=== PATIENT | male | born 1930 | race Caucasian/White ===

== ENCOUNTER → 2017-02-25 | Outpatient (CLI) | payer OTHER | LOC: FIMAGING 09:34 | PROVIDERS: ATTEND Internal Medicine Hematology & Oncology | DX: C61 Malignant neoplasm of prostate (principal); N13.30 Unspecified hydronephrosis; C79.51 Secondary malignant neoplasm of bone | CPT/HCPCS: 78306; A9503 ==

== ENCOUNTER 2017-09-12 09:16 | Emergency (ER) | payer OTHER ==
--- NOTE | 2017-09-12 09:36 | EDPHY ---
H & P Time Seen by Provider: 09/12/17 09:36 HPI/ROS: CHIEF COMPLAINT: Abdominal pain HISTORY OF PRESENT ILLNESS: History of prostate cancer with worsening abdominal fullness and discomfort over the last 2 days. Does not radiate, not better or worse with oral intake. Symptoms mild to moderate. Just describes discomfort without sharp pain. REVIEW OF SYSTEMS: Eye: no change in vision ENT: no sore throat Cardiac: no chest pain or syncope Pulmonary: no cough or SOB Abdomen: No vomiting or diarrhea Musculoskeletal: no back pain Skin: no rash Neuro: no headache Constitutional: no fever : No change in urination A comprehensive 10 point review of systems is otherwise negative aside from elements mentioned in the history of present illness. PAST MEDICAL HISTORY: History of prostate cancer with metastases, appendectomy and tonsillectomy. Social history: , here with his General Appearance: Alert and conversant, cooperative. Eyes: No scleral icterus. ENT, Mouth: Normal mucous membranes. Respiratory: Normal respiratory effort, breath sounds equal, lungs are clear to auscultation. Cardiovascular: Regular rate and rhythm. Gastrointestinal: Abdomen is soft and non tender. Suprapubic fullness. Neurological: Alert, face symmetric, normal motor and sensory in extremities. Ambulatory. Skin: Warm and dry, no rashes. Musculoskeletal: No peripheral edema. Psychiatric: Not agitated. Emergency Department course/MDM: Bladder scan shows large retained urine just after return from the bathroom. Symptoms likely from bladder outlet obstruction and bladder distension. Plan for CBC chemistry UA and Rivera catheter for acute urinary retention. 1033: Re-examined and feels better, leg bag and urology followup. Smoking Status: Never smoked Constitutional: Initial Vital Signs Temperature (C) 36.7 C 09/12/17 09:28 Heart Rate 71 09/12/17 09:28 Respiratory Rate 18 09/12/17 09:28 Blood Pressure 171/96 H 09/12/17 09:28 O2 Sat (%) 91 L 09/12/17 09:28 O2 Delivery Mode Room Air Allergies/Adverse Reactions: No Known Allergies Allergy (Unverified 09/12/17 09:27) Home Medications: Medication Instructions Recorded Miscellaneous Medical Supply [NO 1 ea MISC AD 08/17/11 HOME MEDS] Zytiga 09/12/17 predniSONE 09/12/17 Medical Decision Making Differential Diagnosis: Differential considered including but not limited to UTI, prostate cancer, prostatic hypertrophy, bladder dysfunction, cauda equina or spinal cord problem. - Data Points Laboratory Results: Laboratory Results 09/12/17 09:50 09/12/17 09:50 09/12/17 09/12/17 09/12/17 09:50 09:50 09:40 WBC 11.49 10^3/uL H 10^3/uL (3.80-9.50) RBC 4.60 10^6/uL 10^6/uL (4.40-6.38) Hgb 13.9 g/dL g/dL (13.7-17.5) Hct 41.1 % % (40.0-51.0) MCV 89.3 fL fL (81.5-99.8) MCH 30.2 pg pg (27.9-34.1) MCHC 33.8 g/dL g/dL (32.4-36.7) RDW 14.3 % % (11.5-15.2) Plt Count 202 10^3/uL 10^3/uL (150-400) MPV 9.6 fL fL (8.7-11.7) Neut % (Auto) 72.7 % % (39.3-74.2) Lymph % (Auto) 14.8 % L % (15.0-45.0) [place] % (Auto) 10.5 % % (4.5-13.0) Eos % (Auto) 0.7 % % (0.6-7.6) Baso % (Auto) 0.5 % % (0.3-1.7) Nucleat RBC Rel Count 0.0 % % (0.0-0.2) Absolute Neuts (auto) 8.35 10^3/uL H 10^3/uL (1.70-6.50) Absolute Lymphs (auto) 1.70 10^3/uL 10^3/uL (1.00-3.00) Absolute Monos (auto) 1.21 10^3/uL H 10^3/uL (0.30-0.80) Absolute Eos (auto) 0.08 10^3/uL 10^3/uL (0.03-0.40) Absolute Basos (auto) 0.06 10^3/uL 10^3/uL (0.02-0.10) Absolute Nucleated RBC 0.00 10^3/uL 10^3/uL (0-0.01) Immature Gran % 0.8 % % (0.0-1.1) Immature Gran # 0.09 10^3/uL 10^3/uL (0.00-0.10) Sodium 147 mEq/L H mEq/L (135-145) Potassium 3.1 mEq/L L mEq/L (3.3-5.0) Chloride 107 mEq/L mEq/L (97-110) Carbon Dioxide 26 mEq/l mEq/l (22-31) Anion Gap 14 mEq/L mEq/L (8-16) BUN 24 mg/dL H mg/dL (7-23) Creatinine 1.3 mg/dL mg/dL (0.7-1.3) Estimated GFR 52 Glucose 114 mg/dL H mg/dL (70-100) Calcium 9.0 mg/dL mg/dL (8.5-10.4) Urine Color YELLOW Urine Appearance HAZY Urine pH 6.0 (5.0-7.5) Ur Specific [place] 1.014 (1.002-1.030) Urine Protein NEGATIVE (NEGATIVE) Urine Ketones NEGATIVE (NEGATIVE) Urine Blood 3+ H (NEGATIVE) Urine Nitrate NEGATIVE (NEGATIVE) Urine Bilirubin NEGATIVE (NEGATIVE) Urine Urobilinogen NEGATIVE EU EU (0.2-1.0) Ur Leukocyte Esterase NEGATIVE (NEGATIVE) Urine RBC 50-182 /hpf H /hpf (0-3) Urine WBC 1-3 /hpf /hpf (0-3) Ur Epithelial Cells TRACE /lpf /lpf (NONE-1+) Urine Mucus TRACE /lpf /lpf (NONE-1+) Urine Glucose NEGATIVE (NEGATIVE) Departure - Departure Disposition: Home, Routine, Self-Care Clinical Impression: Urinary retention Condition: Good Instructions: Urinary Retention in Men (ED), Rivera Catheter Placement and Care (ED) Additional Instructions: See your urologist in the office this week. Referrals: DEENA ALLEN [Primary Care Provider] - As per Instructions Filippo Arellano MD [Medical Doctor] - As per Instructions
[2017-09-12 09:58] LABS: PLATELET COUNT 202 10^3/uL (150-400)
[2017-09-12 10:49] VITALS: BP 171/89
== END 2017-09-12 10:45 | disposition home or self-care (01) ==
PROC: 0T9B70Z Drainage of Bladder with Drainage Device, Via Natural or Artificial Opening (ICD-10-PCS; principal; 2017-09-12)
DX: R33.9 Retention of urine, unspecified (principal); Z85.46 Personal history of malignant neoplasm of prostate; Z90.89 Acquired absence of other organs

== ENCOUNTER 2017-09-27 06:06 | Emergency (ER) | payer BC, OTHER ==
--- NOTE | 2017-09-27 06:29 | EDPHY ---
H & P Stated Complaint: ABD PAIN Time Seen by Provider: 09/27/17 06:29 HPI/ROS: HPI CHIEF COMPLAINT: Cut end of Rivera cath off. HISTORY OF PRESENT ILLNESS: 87-year-old male, presents emergency room by private vehicle with his family after he became upset about his Rivera catheter bothering him and having some discomfort. He decided to take pliers and cut the Rivera catheter. He cut the Rivera catheter with the pliers and cut at the end of the Rivera catheter where the tubing hooks up to as well as the flush port. He came into the emergency room with a Rivera catheter still hanging out of his penis. Upon arrival I was able to remove the Rivera catheter that was left remaining in his penile urethra and bladder. The balloon was deflated. There were no complications. The patient had a Rivera catheter placed for urinary outflow obstruction. He is due to follow up with Urology. Will need to place a new Rivera catheter check basic blood work and a urine as he was having some discomfort with this Rivera. Patient was initially seen on September 12 for outflow obstruction had a Rivera catheter placed at that time. Past Medical History: Prostate cancer, appendectomy, tonsillectomy Social History: Denies daily use of drugs alcohol tobacco. at bedside. Son at bedside. Family History: Noncontributory. ROS REVIEW OF SYSTEMS: A comprehensive 10 point review of systems is otherwise negative aside from elements mentioned in the history of present illness. Exam Constitutional triage nursing summary reviewed, vital signs reviewed, awake/ alert. Eyes normal conjunctivae and sclera, EOMI, PERRLA. HENT normal inspection, atraumatic, moist mucus membranes, no epistaxis, neck supple/ no meningismus, no raccoon eyes. Respiratory clear to auscultation bilaterally, normal breath sounds, no respiratory distress, no wheezing. Cardiovascular rate normal, regular rhythm, no murmur, no edema, distal pulses normal. Gastrointestinal soft, non-tender, no rebound, no guarding, normal bowel sounds, no distension, no pulsatile mass. Genitourinary exam: Circumcised male Rivera catheter remaining in place after was cut by the patient Musculoskeletal no midline vertebral tenderness, full range of motion, no calf swelling, no tenderness of extremities, no meningismus, good pulses, neurovascularly intact. Skin pink, warm, & dry, no rash, skin atraumatic. Neurologic awake, alert and oriented x 3, AAOx3, moves all 4 extremities equally, motor intact, sensory intact, CN II-XII intact, normal cerebellar, normal vision, normal speech. Psychiatric normal mood/affect. Heme/Lymph/Immune no lymphadenopathy. Differential Diagnosis: Includes but is not limited to in a particular order Rivera catheter complications, UTI, cystitis, urethritis, cutting of the Rivera catheter, urinary outflow obstruction Medical Decision Making: Plan for this patient was able to easily remove the remaining Rivera catheter as a came right out the balloon was deflated. Once this was removed a new Rivera catheter will be placed. Will check basic blood work. Check urinalysis. The patient will need to follow up with Urology once again. He will go home with a new indwelling Rivera catheter. Re-evaluation: Blood work and urinalysis reviewed. Urinalysis shows UTI urine culture sent. This urine was obtained through a new Rivera catheter. Will place on Keflex and peridium for home. Understands return emergency room if there is worsening abdominal pain fever vomiting back pain not doing well. I discussed this at length with at bedside as well son at bedside. IV Rocephin given here in emergency room. Urine sent for culture. Source: Patient - Personal History Current Tetanus/Diphtheria Vaccine: Unsure Current Tetanus Diphtheria and Acellular Pertussis (TDAP): Unsure Tetanus Vaccine Date: Unsure of date - Medical/Surgical History Hx Asthma: No Hx Chronic Respiratory Disease: No Hx Diabetes: No Hx Cardiac Disease: No Hx Renal Disease: Yes Hx Cirrhosis: No Hx Alcoholism: No Hx HIV/AIDS: No Hx Splenectomy or Spleen Trauma: No Other PMH: Kidney CA, PROSTATE CA - Social History Smoking Status: Never smoked Constitutional: Initial Vital Signs Temperature (C) 36.3 C 09/27/17 06:09 Heart Rate 101 H 09/27/17 06:09 Respiratory Rate 18 09/27/17 06:09 Blood Pressure 146/102 H 09/27/17 06:09 O2 Sat (%) 95 09/27/17 06:09 O2 Delivery Mode Room Air Allergies/Adverse Reactions: No Known Allergies Allergy (Unverified 09/12/17 09:27) Home Medications: Medication Instructions Recorded Miscellaneous Medical Supply [NO 1 ea MISC AD 08/17/11 HOME MEDS] Zytiga 09/12/17 predniSONE 09/12/17 Cephalexin [Keflex] 500 mg PO Q6H #28 cap 09/27/17 Phenazopyridine HCl [Pyridium] 200 mg PO TID #15 tab 09/27/17 Medical Decision Making - Data Points Laboratory Results: Laboratory Results 09/27/17 06:48 09/27/17 06:48 09/27/17 09/27/17 09/27/17 07:15 06:48 06:48 WBC 14.37 10^3/uL H 10^3/uL (3.80-9.50) RBC 4.97 10^6/uL 10^6/uL (4.40-6.38) Hgb 15.2 g/dL g/dL (13.7-17.5) Hct 44.5 % % (40.0-51.0) MCV 89.5 fL fL (81.5-99.8) MCH 30.6 pg pg (27.9-34.1) MCHC 34.2 g/dL g/dL (32.4-36.7) RDW 13.8 % % (11.5-15.2) Plt Count 278 10^3/uL 10^3/uL (150-400) MPV 9.6 fL fL (8.7-11.7) Neut % (Auto) 79.2 % H % (39.3-74.2) Lymph % (Auto) 9.0 % L % (15.0-45.0) [place] % (Auto) 10.0 % % (4.5-13.0) Eos % (Auto) 0.1 % L % (0.6-7.6) Baso % (Auto) 0.4 % % (0.3-1.7) Nucleat RBC Rel Count 0.0 % % (0.0-0.2) Absolute Neuts (auto) 11.38 10^3/uL H 10^3/uL (1.70-6.50) Absolute Lymphs (auto) 1.30 10^3/uL 10^3/uL (1.00-3.00) Absolute Monos (auto) 1.43 10^3/uL H 10^3/uL (0.30-0.80) Absolute Eos (auto) 0.02 10^3/uL L 10^3/uL (0.03-0.40) Absolute Basos (auto) 0.06 10^3/uL 10^3/uL (0.02-0.10) Absolute Nucleated RBC 0.00 10^3/uL 10^3/uL (0-0.01) Immature Gran % 1.3 % H % (0.0-1.1) Immature Gran # 0.18 10^3/uL H 10^3/uL (0.00-0.10) Sodium 140 mEq/L mEq/L (135-145) Potassium 4.2 mEq/L mEq/L (3.3-5.0) Chloride 107 mEq/L mEq/L (97-110) Carbon Dioxide 23 mEq/l mEq/l (22-31) Anion Gap 10 mEq/L mEq/L (8-16) BUN 36 mg/dL H mg/dL (7-23) Creatinine 0.8 mg/dL mg/dL (0.7-1.3) Estimated GFR > 60 Glucose 134 mg/dL H mg/dL (70-100) Calcium 9.1 mg/dL mg/dL (8.5-10.4) Urine Color RED Urine Appearance TURBID Urine pH 8.0 H (5.0-7.5) Ur Specific [place] 1.017 (1.002-1.030) Urine Protein 3+ H (NEGATIVE) Urine Ketones NEGATIVE (NEGATIVE) Urine Blood 3+ H (NEGATIVE) Urine Nitrate NEGATIVE (NEGATIVE) Urine Bilirubin NEGATIVE (NEGATIVE) Urine Urobilinogen NEGATIVE EU EU (0.2-1.0) Ur Leukocyte Esterase 3+ H (NEGATIVE) Urine RBC Pending Urine WBC Pending Ur Epithelial Cells Pending Urine Glucose 1+ H (NEGATIVE) Departure - Departure Disposition: Home, Routine, Self-Care Clinical Impression: Rivera catheter problem Qualifiers: Encounter type: initial encounter Qualified Code(s): T83.9XXA - Unspecified complication of genitourinary prosthetic device, implant and graft, initial encounter UTI (urinary tract infection) Qualifiers: Urinary tract infection type: acute cystitis Hematuria presence: with hematuria Qualified Code(s): N30.01 - Acute cystitis with hematuria Condition: Good Instructions: Rivera Catheter Placement and Care (ED), Urinary Tract Infection in Men (ED) Additional Instructions: 1. Return emergency room if you have any questions or concerns about her Rivera catheter 2. Please follow up with your urologist. Referrals: DEENA ALLEN [Primary Care Provider] - As per Instructions Jessy Palma MD [Medical Doctor] - As per Instructions Prescriptions: Cephalexin [Keflex] 500 mg PO Q6H #28 cap Phenazopyridine HCl [Pyridium] 200 mg PO TID #15 tab
[2017-09-27 07:00] LABS: PLATELET COUNT 278 10^3/uL (150-400)
[2017-09-27] MEDS ORDERED: PHENAZOPYRIDINE HCL 200 MG TAB PO ONE (07:36)
[2017-09-27 08:37] VITALS: BP 148/90
== END 2017-09-27 08:36 | disposition home or self-care (01) ==
PROC: 0T9B70Z Drainage of Bladder with Drainage Device, Via Natural or Artificial Opening (ICD-10-PCS; principal; 2017-09-27)
DX: T83.091A Other mechanical complication of indwelling urethral catheter, initial encounter (principal); N30.01 Acute cystitis with hematuria; B95.2 Enterococcus as the cause of diseases classified elsewhere; Z85.46 Personal history of malignant neoplasm of prostate; Z85.528 Personal history of other malignant neoplasm of kidney; Y73.2 Prosthetic and other implants, materials and accessory gastroenterology and urology devices associated with adverse incidents
CPT/HCPCS: 51702; 74018; 96374; 99284; J0696

== ENCOUNTER → 2017-10-01 | Outpatient (CLI) | payer BC, OTHER | LOC: FIMAGING 08:42 | PROVIDERS: ATTEND Physician Assistant | DX: C61 Malignant neoplasm of prostate (principal); C79.51 Secondary malignant neoplasm of bone; R97.21 Rising PSA following treatment for malignant neoplasm of prostate | CPT/HCPCS: 78306; A9503 ==

== ENCOUNTER 2017-10-02 17:15 | Inpatient (IN) | payer BC, OTHER ==
[2017-10-02] MEDS ORDERED: NS 1,000 ML IV ONE (17:39)
[2017-10-02] MEDS ORDERED: ONDANSETRON 4 MG/2 ML VIAL IVP ONE (17:40)
--- NOTE | 2017-10-02 17:40 | EDPHY ---
H & P Time Seen by Provider: 10/02/17 17:28 HPI/ROS: CHIEF COMPLAINT: Concern for dehydration HISTORY OF PRESENT ILLNESS: Patient brought in by family because of concern for dehydration because he is not eating or drinking. He has a Rivera catheter, was seen here twice recently for that. He over the past 36 hr says that he "gags" every time he tries to eat or drink anything. He has an upset stomach and has not only been able to eat a peach today but no oral fluids. Symptoms moderate, worse with attempting to eat or drink. No abdominal pain and no fevers or chills. REVIEW OF SYSTEMS: Eye: no change in vision ENT: no sore throat Cardiac: no chest pain or syncope Pulmonary: no cough or SOB Abdomen: HPI Musculoskeletal: no back pain Skin: no rash Neuro: no headache Constitutional: no fever : Rivera catheterization A comprehensive 10 point review of systems is otherwise negative aside from elements mentioned in the history of present illness. PAST MEDICAL HISTORY: Kidney and prostate cancer, Rivera catheter Social history: Here with son and General Appearance: Alert and conversant, cooperative. Eyes: No scleral icterus. ENT, Mouth: Dry mucous membranes Respiratory: Normal respiratory effort, breath sounds equal, lungs are clear to auscultation. Cardiovascular: Regular rate and rhythm. Gastrointestinal: Abdomen is soft and non tender. Neurological: Alert, face symmetric, normal motor and sensory in extremities. Skin: Warm and dry, no rashes. Musculoskeletal: No peripheral edema. Psychiatric: Not agitated. Emergency Department course/MDM: IV normal saline 1 L, Zofran 4 mg IV, EKG and screening labs. 1825: enterobacter resistant to cefazolin, on nitrofurantoin since; recommend admission IV antibiotics. 1 g IV ceftriaxone, is sensitive per micro result. Smoking Status: Never smoked Constitutional: Initial Vital Signs Temperature (C) 36.5 C 10/02/17 17:33 Heart Rate 80 10/02/17 17:33 Respiratory Rate 18 10/02/17 17:33 Blood Pressure 149/98 H 10/02/17 17:33 O2 Sat (%) 93 10/02/17 17:33 O2 Delivery Mode Room Air Allergies/Adverse Reactions: No Known Allergies Allergy (Verified 10/02/17 20:04) Home Medications: Medication Instructions Recorded Abiraterone Acetate [Zytiga] 1,000 mg PO HS 10/02/17 Nitrofurantoin Macrobid [Macrobid] 100 mg PO BID 10/02/17 Phenazopyridine HCl [Pyridium] 200 mg PO TID 10/02/17 Potassium Chloride 20 meq PO DAILY 10/02/17 predniSONE [predniSONE] 5 mg PO BIDMEAL 10/02/17 Medical Decision Making - Diagnostics EKG Interpretation: 12-lead EKG interpreted by me; official reading is in trace master. My interpretation is sinus rhythm, inferior Q-waves noted, rate 95. Differential Diagnosis: Differential considered including but not limited to UTI, ACS, metabolic abnormality, dehydration. Consult/Admit Bed Type: [place] [id number] - Data Points Laboratory Results: Laboratory Results 10/02/17 17:45 10/02/17 17:45 10/02/17 10/02/17 10/02/17 17:45 17:45 17:45 WBC 16.39 10^3/uL H 10^3/uL (3.80-9.50) RBC 4.80 10^6/uL 10^6/uL (4.40-6.38) Hgb 14.4 g/dL g/dL (13.7-17.5) Hct 42.7 % % (40.0-51.0) MCV 89.0 fL fL (81.5-99.8) MCH 30.0 pg pg (27.9-34.1) MCHC 33.7 g/dL g/dL (32.4-36.7) RDW 13.6 % % (11.5-15.2) Plt Count 279 10^3/uL 10^3/uL (150-400) MPV 9.3 fL fL (8.7-11.7) Neut % (Auto) 81.6 % H % (39.3-74.2) Lymph % (Auto) 8.7 % L % (15.0-45.0) [place] % (Auto) 7.1 % % (4.5-13.0) Eos % (Auto) 0.8 % % (0.6-7.6) Baso % (Auto) 0.5 % % (0.3-1.7) Nucleat RBC Rel Count 0.0 % % (0.0-0.2) Absolute Neuts (auto) 13.37 10^3/uL H 10^3/uL (1.70-6.50) Absolute Lymphs (auto) 1.42 10^3/uL 10^3/uL (1.00-3.00) Absolute Monos (auto) 1.17 10^3/uL H 10^3/uL (0.30-0.80) Absolute Eos (auto) 0.13 10^3/uL 10^3/uL (0.03-0.40) Absolute Basos (auto) 0.09 10^3/uL 10^3/uL (0.02-0.10) Absolute Nucleated RBC 0.00 10^3/uL 10^3/uL (0-0.01) Immature Gran % 1.3 % H % (0.0-1.1) Immature Gran # 0.21 10^3/uL H 10^3/uL (0.00-0.10) Sodium 135 mEq/L mEq/L (135-145) Potassium 3.9 mEq/L mEq/L (3.3-5.0) Chloride 107 mEq/L mEq/L (97-110) Carbon Dioxide 24 mEq/l mEq/l (22-31) Anion Gap 4 mEq/L L mEq/L (8-16) BUN 19 mg/dL mg/dL (7-23) Creatinine 0.6 mg/dL L mg/dL (0.7-1.3) Estimated GFR > 60 Glucose 110 mg/dL H mg/dL (70-100) Calcium 8.7 mg/dL mg/dL (8.5-10.4) Urine Color RED Urine Appearance TURBID Urine pH 6.0 (5.0-7.5) Ur Specific [place] 1.016 (1.002-1.030) Urine Protein 2+ H (NEGATIVE) Urine Ketones 1+ H (NEGATIVE) Urine Blood 3+ H (NEGATIVE) Urine Nitrate POSITIVE H (NEGATIVE) Urine Bilirubin NEGATIVE (NEGATIVE) Urine Urobilinogen 2.0 EU H EU (0.2-1.0) Ur Leukocyte Esterase NEGATIVE (NEGATIVE) Urine RBC 50-182 /hpf H /hpf (0-3) Urine WBC 50-182 /hpf H /hpf (0-3) Ur Epithelial Cells NONE SEEN /lpf /lpf (NONE-1+) Urine Bacteria 4+ /hpf H /hpf (NONE SEEN) Urine Mucus 3+ /lpf H /lpf (NONE-1+) Urine Glucose NEGATIVE (NEGATIVE) Medications Given: Discontinued Medications Sodium Chloride (Ns) 1,000 mls @ 0 mls/hr IV EDNOW ONE; Wide Open PRN Reason: Protocol Stop: 10/02/17 17:40 Last Admin: 10/02/17 17:48 Dose: 1,000 mls Ceftriaxone Sodium/Dextrose (Rocephin 1 Gm (Premix)) 50 mls @ 100 mls/hr IV EDNOW ONE PRN Reason: Protocol Stop: 10/02/17 19:01 Last Admin: 10/02/17 18:43 Dose: 50 mls Ondansetron HCl (Zofran) 4 mg IVP EDNOW ONE Stop: 10/02/17 17:41 Last Admin: 10/02/17 17:49 Dose: 4 mg Departure - Departure Disposition: [place] Inpatient Acute Clinical Impression: Urinary tract infection Qualifiers: Urinary tract infection type: catheter-associated UTI Indwelling urinary catheter type: indwelling urethral catheter Encounter type: initial encounter Qualified Code(s): T83.511A - Infection and inflammatory reaction due to indwelling urethral catheter, initial encounter Condition: Good
[2017-10-02 18:02] LABS: PLATELET COUNT 279 10^3/uL (150-400)
--- NOTE | 2017-10-02 18:07 | CPEKG ---
Heart Rate: 95 RR Interval: 632 P-R Interval: 126 QRSD Interval: 94 QT Interval: 416 QTC Interval: 523 P [place]: 0 QRS [place]: -83 T Wave [place]: 21 EKG Severity - ABNORMAL ECG - EKG Impression: SINUS RHYTHM EKG Impression: INFERIOR INFARCT, AGE INDETERMINATE EKG Impression: PROLONGED QT INTERVAL Electronically Signed By: Alex Kapadia 02-Oct-2017 18:52:46
[2017-10-02] MEDS ORDERED: ONDANSETRON DISINTEGRATING 4 MG TAB PO PRN (19:38)
[2017-10-02] MEDS ORDERED: oxyCODONE IR 5 MG TAB PO PRN (19:38)
[2017-10-02] MEDS ORDERED: ONDANSETRON 4 MG/2 ML VIAL IVP PRN (19:38)
[2017-10-02] MEDS ORDERED: PROMETHAZINE HCL 25 MG/ML INJ IVP PRN (19:38)
[2017-10-02] MEDS ORDERED: ACETAMINOPHEN 325 MG TAB PO PRN (19:38)
--- NOTE | 2017-10-02 20:19 | PDGENHP ---
History and Physical - Chief Complaint can't eat or drink - History of Present Illness 87 yo M with PMH of metastatic prostate cancer, currently taking zytiga, with history of urinary retention and onrelas in place since August presenting with inability to tolerate much by mouth without gagging or feeling nauseated. He notes all day today he ate a peach. He is accompanied by his and son who are concerned that he was unable to take his zytiga due to not eating all day and needing to take the medication with food. Patient denies any fever or chills , he denies any pain. He notes that he is now able to drink water without gagging or feeling nauseated and he does want to try eating. He presented to the ER a week ago with complaints of discomfort with his ornelas, and had actually cut off the distal end of the catheter. At that time, he was sent home with keflex for a UTI. He took that for one week and more recently was started on macrobid. He currently denies any urinary complaints. History Information - Allergies/Home Medication List Allergies/Adverse Reactions: No Known Allergies Allergy (Verified 10/02/17 20:04) Home Medications: Abiraterone Acetate [Zytiga] 1,000 mg PO HS 10/02/17 [Last Taken 10/01/17] Nitrofurantoin Macrobid [Macrobid] 100 mg PO BID 10/02/17 [Last Taken 10/02/17] Phenazopyridine HCl [Pyridium] 200 mg PO TID 10/02/17 [Last Taken Unknown] Potassium Chloride 20 meq PO DAILY 10/02/17 [Last Taken 10/01/17] predniSONE [predniSONE] 5 mg PO BIDMEAL 10/02/17 [Last Taken 10/01/17] I have personally reviewed and updated: family history, medical history, social history, surgical history - Past Medical History cancer (metastatic prostate cancer, diffuse osseous mets) - Surgical History Reports: appendectomy - Family History Positive for: non-pertinent - Social History Smoking Status: Never smoked Alcohol Use: Rarely Drug Use: None Additional social history: Review of Systems Review of Systems: ROS: 10pt was reviewed & negative except for what was stated in HPI & below Physical Exam Physical Exam: Temp Pulse Resp BP Pulse Ox 36.5 C 91 18 134/96 H 92 10/02/17 17:33 10/02/17 19:49 10/02/17 19:49 10/02/17 19:49 10/02/17 19:49 Constitutional: not in pain, chronically ill appearing, cachectic Eyes: PERRL Ears, Nose, Mouth, Throat: moist mucous membranes, hearing normal Cardiovascular: regular rate and rhythym, no murmur, rub, or gallop, No edema Respiratory: no respiratory distress, no rales or rhonchi Gastrointestinal: normoactive bowel sounds, soft, non-tender abdomen Genitourinary: ornelas in urethra Skin: warm, normal color Musculoskeletal: no muscle tenderness Neurologic: AAOx3 Psychiatric: interacting appropriately, not anxious, poor memory Lab Data & Imaging Review 10/02/17 17:45 10/02/17 17:45 WBC 16.39 10^3/uL (3.80-9.50) H 10/02/17 17:45 RBC 4.80 10^6/uL (4.40-6.38) 10/02/17 17:45 Hgb 14.4 g/dL (13.7-17.5) 10/02/17 17:45 Hct 42.7 % (40.0-51.0) 10/02/17 17:45 MCV 89.0 fL (81.5-99.8) 10/02/17 17:45 MCH 30.0 pg (27.9-34.1) 10/02/17 17:45 MCHC 33.7 g/dL (32.4-36.7) 10/02/17 17:45 RDW 13.6 % (11.5-15.2) 10/02/17 17:45 Plt Count 279 10^3/uL (150-400) 10/02/17 17:45 MPV 9.3 fL (8.7-11.7) 10/02/17 17:45 Neut % (Auto) 81.6 % (39.3-74.2) H 10/02/17 17:45 Lymph % (Auto) 8.7 % (15.0-45.0) L 10/02/17 17:45 [place] % (Auto) 7.1 % (4.5-13.0) 10/02/17 17:45 Eos % (Auto) 0.8 % (0.6-7.6) 10/02/17 17:45 Baso % (Auto) 0.5 % (0.3-1.7) 10/02/17 17:45 Nucleat RBC Rel Count 0.0 % (0.0-0.2) 10/02/17 17:45 Absolute Neuts (auto) 13.37 10^3/uL (1.70-6.50) H 10/02/17 17:45 Absolute Lymphs (auto) 1.42 10^3/uL (1.00-3.00) 10/02/17 17:45 Absolute Monos (auto) 1.17 10^3/uL (0.30-0.80) H 10/02/17 17:45 Absolute Eos (auto) 0.13 10^3/uL (0.03-0.40) 10/02/17 17:45 Absolute Basos (auto) 0.09 10^3/uL (0.02-0.10) 10/02/17 17:45 Absolute Nucleated RBC 0.00 10^3/uL (0-0.01) 10/02/17 17:45 Immature Gran % 1.3 % (0.0-1.1) H 10/02/17 17:45 Immature Gran # 0.21 10^3/uL (0.00-0.10) H 10/02/17 17:45 Sodium 135 mEq/L (135-145) 10/02/17 17:45 Potassium 3.9 mEq/L (3.3-5.0) 10/02/17 17:45 Chloride 107 mEq/L (97-110) 10/02/17 17:45 Carbon Dioxide 24 mEq/l (22-31) 10/02/17 17:45 Anion Gap 4 mEq/L (8-16) L 10/02/17 17:45 BUN 19 mg/dL (7-23) 10/02/17 17:45 Creatinine 0.6 mg/dL (0.7-1.3) L 10/02/17 17:45 Estimated GFR > 60 10/02/17 17:45 Glucose 110 mg/dL (70-100) H 10/02/17 17:45 Calcium 8.7 mg/dL (8.5-10.4) 10/02/17 17:45 Urine Color RED 10/02/17 17:45 Urine Appearance TURBID 10/02/17 17:45 Urine pH 6.0 (5.0-7.5) 10/02/17 17:45 Ur Specific [place] 1.016 (1.002-1.030) 10/02/17 17:45 Urine Protein 2+ (NEGATIVE) H 10/02/17 17:45 Urine Ketones 1+ (NEGATIVE) H 10/02/17 17:45 Urine Blood 3+ (NEGATIVE) H 10/02/17 17:45 Urine Nitrate POSITIVE (NEGATIVE) H 10/02/17 17:45 Urine Bilirubin NEGATIVE (NEGATIVE) 10/02/17 17:45 Urine Urobilinogen 2.0 EU (0.2-1.0) H 10/02/17 17:45 Ur Leukocyte Esterase NEGATIVE (NEGATIVE) 10/02/17 17:45 Urine RBC 50-182 /hpf (0-3) H 10/02/17 17:45 Urine WBC 50-182 /hpf (0-3) H 10/02/17 17:45 Ur Epithelial Cells NONE SEEN /lpf (NONE-1+) 10/02/17 17:45 Urine Bacteria 4+ /hpf (NONE SEEN) H 10/02/17 17:45 Urine Mucus 3+ /lpf (NONE-1+) H 10/02/17 17:45 Urine Glucose NEGATIVE (NEGATIVE) 10/02/17 17:45 Visualized and Interpreted EKG results: Yes EKG Interpretation: Positive for: normal sinsus rhythm Assessment & Plan Assessment: Urinary tract infection (Acute) 87 yo M with hx of metastatic prostate cancer and bladder outlet obstruction with urinary retention and indwelling ornelas presenting with poor po intake, dehydration in setting of likely uti # uti: in the setting of indwelling ornelas x 1 month, had been on abx as an OP including keflex and more recently macrobid. Urine cultures from / polymicrobial with enterobacter, enterococcus and 3 other colony types--with enterobacter being resistant to cefazolin. Started on ctx, will attempt to have cultures added to urine drawn in ER prior to abx administration. Catheter will be changed out. Given chronic ornelas will ask ID to weigh in on abx mgmt in am. # urinary retention, chronic: with GROSS due to prostatomegaly and bladder enlargement, ornelas in place since August. Reviewed [facility] note from urology who feels that patient will likely be catheter dependent for life at this point. # metastatic prostate cancer: with patient initially declining traditional care and opting for diet and herbal treatments, now with progressive, widely metastatic disease and recent bone scan showing continued increasing bony involvement. Currently on zytiga and Lupron, followed by Dr. Montano and Dr. Joshi. If hospitalization is prolonged past tomorrow, would recommend IP oncology consultation. PSA most recently climbing again, now 86, but has been as high as 684. # dehydration: with poor po intake for one day in setting of uti and presumably due to same, continue IVF overnight, creatinine not increased # anorexia: presumably due to acute infection but with hx of widely metastatic prostate cancer there is the possibility that this is due to progression of cancer rather than acute process, as above # observation status, plan to dc patient on 10/03 so long as plan for abx is clear and patient eating/drinking well patient new to my care. Old records reviewed and summarized as above. Care plan reviewed with ER doctor including plan for abx management.
[2017-10-02] MEDS: PHENAZOPYRIDINE HCL 200 MG TAB PO SCH (20:48)
[2017-10-02] MEDS: ABIRATERONE ACETATE 250 MG PO SCH (22:34)
[2017-10-03] MEDS: NS 1,000 ML IV SCH ×3 (00:02→21:20)
[2017-10-03 05:26] LABS: PLATELET COUNT 228 10^3/uL (150-400)
[2017-10-03] MEDS: ABIRATERONE ACETATE 250 MG PO SCH (06:15)
[2017-10-03] MEDS ORDERED: ENOXAPARIN 30 MG/0.3 ML SYR SC SCH (09:00)
[2017-10-03] MEDS: PHENAZOPYRIDINE HCL 200 MG TAB PO SCH ×3 (09:02→21:10)
[2017-10-03] MEDS: predniSONE 5 MG TAB PO SCH ×2 (09:02→17:16)
[2017-10-03] MEDS ORDERED: Abiraterone Acetate [Zytiga] 250 MG PO SCH (12:00)
--- NOTE | 2017-10-03 12:10 | HOSPPROG ---
Hospitalist Progress Note Assessment/Plan: Assessment: 87-year-old male presents with catheter associated urinary tract infection and associated anorexia and generalized weak Plan: 1. Catheter associated urinary tract infection. Present on admission, secondary to indwelling Ornelas catheter which is required for his history of metastatic prostate cancer, recently failed treatment with Keflex and Macrobid -review of outside cultures demonstrates Enterococcus and Enterobacter from , resistant Ancef -day 2 of IV ceftriaxone, continue for total 7-10 day course -leukocytosis improving, remains elevated, continue monitor white blood cell count -patient remains profoundly symptomatic, including anorexia and generalized weakness, only tolerating some sips of water today -continue IV fluids -changed Ornelas catheter -continue monitor urine culture -check blood culture to ensure no concomitant bacteremia -counseled patient extensively regarding treatment strategy above, we agreed to get physical and occupational therapy as well as increased mobility today, in attempts to gauge performance status determine which services will be required after this acute episode of care 2. Dental erosions. Chronic, patient has dental erosions, most notably in his mandibular left incisors, but no evidence of additional periodontal abscess -continue monitor -likely currently covered with ceftriaxone but if patient's white blood cell count is rising, or AV comes febrile, broaden scope of antibiotics -patient is having this addressed by an outpatient dentist 3. Prostate cancer. Metastatic, chronic, patient is managed at [facility] with Kevin and Fransisca -if any additional complications, will consult with Oncology Diet. Regular as tolerates, encourage Code. Full Prophylaxis. High risk patient, Lovenox 40. Disposition. Anticipated discharge uncertain, upgraded to inpatient admission status for reasonable medical necessity including catheter associated urinary tract infection with pervasive GI and systemic symptoms rendering patient unable to safely transition home as he is unable to maintain oral intake or complete activities of daily living. Subjective: Patient reports he still feels very weak, he has barely had anything to drink Objective: Vital Signs Temp Pulse Resp BP Pulse Ox 36.7 C 86 14 117/81 H 90 L 10/03/17 11:22 10/03/17 11:22 10/03/17 11:22 10/03/17 11:22 10/03/17 11:22 Laboratory Results 10/03/17 05:08 10/02/17 10/03/17 10/04/17 05:59 05:59 05:59 Intake Total 1200 Output Total 250 600 Balance 950 -600 - Time Spent With Patient Time Spent with Patient: greater than 35 minutes Time Spent with Patient: Greater than 35 minutes spent on this patients care, greater than 50% of time spent counseling, educating, and coordinating care regarding the above mentioned plan. - Physical Exam Constitutional: not in pain, chronically ill appearing, uncomfortable Cardiovascular: regular rate and rhythym, no murmur, rub, or gallop, No edema Respiratory: no respiratory distress, no rales or rhonchi, clear to auscultation Gastrointestinal: normoactive bowel sounds, soft, non-tender abdomen, no palpable masses Genitourinary: ornelas in urethra (With dark-colored urine and sediment), other ( No CVA tenderness bilaterally) Neurologic: AAOx3, sensation intact bilaterally, No weakness (Motor strength 5/ 5 bilateral lower extremities) Psychiatric: not anxious, not encephalopathic, flat affect, No agitated ICD10 Worksheet Patient Problems: Problems Problem Status Onset Urinary tract infection Acute
--- NOTE | 2017-10-03 13:44 | ASMTLACE ---
LACE Acuity / Level of Answers: No Care: Did the patient have an inpatient admission? Comorbidities - select Answers: Any tumor (including all that apply lymphoma or leukemia) Other Notes: UTI # of Emergency department Answers: 3-4 visits in the last 6 months Score: 6 Date Signed: 10/03/2017 01:43 PM Electronically Signed By:Paola Merida LCSW
--- NOTE | 2017-10-03 14:02 | ASMTCMCOM ---
CM Note CM Note Notes: 87yr old male admitted for UTI, Urinary retention, Met Prostate CA, Dehydration, Anorexia. PT recommending Hm; OT=Hm w/24hr super/HC. Patient may be better Wednesday after today's ABX tx. Patient lives with his in [place]. CM to follow. Date Signed: 10/03/2017 02:01 PM Electronically Signed By:Paola Merida LCSW
[2017-10-03] MEDS ORDERED: LACTULOSE 20 GM/30 ML UDCUP PO PRN (15:58)
[2017-10-03] MEDS ORDERED: BISACODYL 10 MG SUPP PR PRN (15:58)
[2017-10-03] MEDS ORDERED: MAGNESIUM HYDROXIDE 30 ML UDCUP PO PRN (15:58)
[2017-10-03] MEDS ORDERED: POLYETHYLENE GLYCOL 3350 17 GM PKT PO PRN (15:58)
--- NOTE | 2017-10-03 17:10 | PDMN ---
Medical Necessity Medical necessity: Change to IP, as of 10/03/17, per MD & MCG M-300; los >2 mn for ongoing management of UTI secondary to chronic indwelling urinary catheter w /failed outpatient abx tx, anorexia, dehydration & generalized weakness; requiring ID/Oncology consults, IV abx, IVFs & therapy; hx metastatic prostate cancer, immunocompromised on chronic steroid; per progress note & order 10/03/17
[2017-10-03] MEDS ORDERED: ZYTIGA 250 MG PO SCH (21:00)
[2017-10-03] MEDS: SENNOSIDES/DOCUSATE SODIUM TAB PO SCH (21:10)
[2017-10-04] MEDS: SENNOSIDES/DOCUSATE SODIUM TAB PO SCH (07:54)
[2017-10-04] MEDS: predniSONE 5 MG TAB PO SCH (07:54)
[2017-10-04] MEDS: PHENAZOPYRIDINE HCL 200 MG TAB PO SCH (07:54)
[2017-10-04] MEDS ORDERED: D5W 1/2 NS W/ 20 KCl/L 1,000 ML IV SCH (08:45)
[2017-10-04] MEDS ORDERED: ENOXAPARIN 40 MG/0.4 ML SYR SC SCH (09:00)
[2017-10-04 12:00] VITALS: BP 130/81
--- NOTE | 2017-10-04 13:37 | PDDCSUM ---
Discharge Summary Discharge Summary: DISCHARGE SUMMARY FOLLOW-UP ITEMS: 1. Outpatient follow-up with primary urologist 2. Blood cultures and urine cultures pending at time of discharge, to be followed up by primary urologist office DATE OF ADMISSION: 10/02/2017 DATE OF DISCHARGE: 10/04/2017 DISCHARGE DIAGNOSES: 1. Complicated catheter associated urinary tract infection, present on admission 2. Chronic dental erosions 3. Chronic metastatic prostate cancer 4. Mild hydronephrosis right-sided CONSULTATIONS: Oncology PROCEDURES / IMAGING: Abdominal ultrasound demonstrating thickened but decompressed bladder wall with suspected diverticulum but no abscess, mild hydronephrosis on the right CHIEF COMPLAINT: Acute anorexia, weakness SUBJECTIVE: Patient is feeling improved at time of discharge, his appetite has substantially improved he feels safe ambulating PHYSICAL EXAM ON DISCHARGE: Systolic blood pressure 110-130, heart rate 69, afebrile overnight, satting well on room air, alert awake oriented x3, no apparent distress, abdomen is soft , nondistended, nontender, bowel sounds are present, Rivera catheter is in urethra LABS ON DISCHARGE: PSA 117, alk phos 130, creatinine 0.5, potassium 3.4, white blood cell count 46527, hemoglobin 12.3 HOSPITAL COURSE BY PROBLEM: The patient presented with anorexia and generalized weakness secondary to a catheter associated urinary tract infection which was present on admission and secondary to his chronic indwelling Rivera catheter, which he has recently been informed is most likely permanent in the setting of his metastatic prostate cancer. He had failed outpatient oral antibiotic treatment with Keflex and Macrobid, and presented with worsening symptoms, leukocytosis, and was initiated on IV ceftriaxone. Review of his outside cultures from 09/27/2017 demonstrated enterococcus and Enterobacter which were resistant to Ancef. The patient's leukocytosis improved with IV ceftriaxone, and the patient symptomatically improved as well. He was hungry and tolerating an oral diet at time discharge. He was ambulating safely in declined any home care services I suspect that the offending agent was Enterobacter, which is notably sensitive to ceftriaxone. Given that this is by definition a complicated urinary tract infection, requires extended duration of antibiotics, the patient will receive a total of 10 days of antibiotic therapy. He received 3 days of IV ceftriaxone in the hospital, and will continue on oral cefpodoxime 200 mg twice daily for 1 week. His family is concerned about the risk of recurrent urinary tract infections, and we have exchange the patient's Rivera catheter during this hospitalization for clean 1. I have encouraged him to do so every 30 days through the primary urologist office. I have also encouraged him to discuss with his primary Urology office the risks versus benefits of either suppressive antibiotic therapy or any other dietary recommendations that they may have to reduce risk of recurrent urinary tract infection. Notably, the patient does have progressive metastatic prostate cancer, and recent bone scan demonstrated increased uptake in the renal system as well as in his skeletal system. I suspect that this has contributed to some mild right- sided hydronephrosis, and the patient currently does not have any obstructive pathology or elevated creatinine. He should follow up with his primary urologist to consider repeat abdominal CT as well as either CT cystogram or retrograde cystogram. The patient was seen in-house by his primary local oncologist Dr. Sal Joshi and he will continue to follow up with him as well as [facility]. DISCHARGE MEDICATIONS: Please see official discharge medication reconciliation sheet in chart , cefpodoxime 200 mg twice daily x1 week. DISCHARGE INSTRUCTIONS: Please follow up with primary urologist as scheduled, follow up with outpatient Oncology. TIME SPENT: Greater than 30 minutes were spent on direct patient care, as well as discharge planning and preparation.
--- NOTE | 2017-10-04 14:29 | ASMTDCNOTE ---
Case Management Discharge Discharge Order Complete? Answers: Yes Patient to Obtain Answers: via Family Medications Transportation Arranged Answers: Family/Friends EMTALA Complete Answers: No Case Management Transport Answers: No Form Complete Faxed Final Orders Answers: No Agency/Facility Transfer Answers: No Report Printed & Faxed to Receiving Agency Family Notified Answers: Yes Discharge Comments Notes: JOSE spoke w/ Michelle, RN regarding d/c POC. Michelle is hoping that pt can get HC services at home. CM met w/ pt, pts and pts son for dispo planning. Pt and family are not interested in HC services at this time. CM informed pt that if he changed his mind once he got home he could have his PCP order HC. No needs identified at this time. CM available for changes. Plan: Independent Date Signed: 10/04/2017 02:28 PM Electronically Signed By:JEANCARLOS Bassett
== END 2017-10-04 14:48 | disposition home or self-care (01) | DRG 699 ==
LOC: F3E 20:12 → OBSVTOIN 10-03 10:23
PROVIDERS: ADMIT Internal Medicine; ATTEND Internal Medicine
DX: T83.511A Infection and inflammatory reaction due to indwelling urethral catheter, initial encounter (principal); N13.30 Unspecified hydronephrosis; R33.9 Retention of urine, unspecified; C79.51 Secondary malignant neoplasm of bone; K03.2 Erosion of teeth; Z96.0 Presence of urogenital implants; Z85.46 Personal history of malignant neoplasm of prostate; Z85.528 Personal history of other malignant neoplasm of kidney
CPT/HCPCS: 96374; 97116-GP; 97161-GP; 97165-GO; G0378; G8978-GP-CI; G8979-GP-CI; G8980-GP-CI; G8987-GO-CI; G8988-GO-CI; J0696; J1650; J2405; J7512

== ENCOUNTER 2017-12-04 18:54 | Inpatient (IN) | payer OTHER ==
[2017-12-04] MEDS ORDERED: NS 1,000 ML IV ONE ×2 (19:22→20:11)
--- NOTE | 2017-12-04 19:38 | EDPHY ---
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 He also began radiation therapy about 2 weeks ago. His family brings him to the ER today because he is complaining that he has mild diffuse abdominal pain for the last 2 days and does not feel like eating today. He threw up once yesterday. No diarrhea. No fever. He has a indwelling Ornelas catheter that is quite cloudy. His son states that it was clear a few days ago. No rashes. He is not on pain medications. Severity: Moderate Modifying factors: None REVIEW OF SYSTEMS: Constitutional: denies: chills, fever, recent illness, recent injury EENTM: denies: blurred vision, double vision, nose congestion Respiratory: denies: cough, shortness of breath Cardiac: denies: chest pain, irregular heart rate, lightheadedness, palpitations Gastrointestinal/Abdominal: See HPI Genitourinary: denies: dysuria, frequency, hematuria, pain Musculoskeletal: denies: joint pain, muscle pain Skin: denies: lesions, rash, jaundice, bruising Neurological: denies: headache, numbness, paresthesia, tingling, dizziness, weakness Hematologic/Lymphatic: denies: blood clots, easy bleeding, easy bruising Immunologic/allergic: denies: HIV/AIDS, transplant 10 systems reviewed and negative except as noted EXAM: GENERAL: Well-appearing, well-nourished and in no acute distress. HEAD: Atraumatic, normocephalic. EYES: Pupils equal round and reactive to light, extraocular movements intact, sclera anicteric, conjunctiva are normal. ENT: TMs normal, nares patent, oropharynx clear without exudates. Moist mucous membranes. NECK: Normal range of motion, supple without lymphadenopathy or JVD. LUNGS: Breath sounds clear to auscultation bilaterally and equal. No wheezes rales or rhonchi. HEART: Regular rate and rhythm without murmurs, rubs or gallops. ABDOMEN: Soft, nontender, normoactive bowel sounds. No guarding, no rebound. No masses appreciated. BACK: No CVA tenderness, no spinal tenderness, step-offs or deformities EXTREMITIES: Normal range of motion, no pitting or edema. No clubbing or cyanosis. NEUROLOGICAL: Cranial nerves II through XII grossly intact. Normal speech, normal gait. 5/5 strength, normal movement in all extremities, normal sensation , normal reflexes PSYCH: Normal mood, normal affect. SKIN: Warm, dry, normal turgor, no visible rashes or lesions. Source: Patient Exam Limitations: No limitations - Personal History Current Tetanus/Diphtheria Vaccine: Unsure Current Tetanus Diphtheria and Acellular Pertussis (TDAP): Unsure Tetanus Vaccine Date: Unsure of date - Medical/Surgical History Hx Asthma: No Hx Chronic Respiratory Disease: No Hx Diabetes: No Hx Cardiac Disease: No Hx Renal Disease: Yes Hx Cirrhosis: No Hx Alcoholism: No Hx HIV/AIDS: No Hx Splenectomy or Spleen Trauma: No Other PMH: Prostate cancer with diffuse metastasis, ornelas cath, appy, anorexia, thrush, adrenal insufficiency, - Family History Significant Family History: No pertinent family hx - Social History Smoking Status: Never smoked Alcohol Use: None Constitutional: Initial Vital Signs Temperature (C) 36.4 C 12/04/17 18:58 Heart Rate 97 12/04/17 18:58 Respiratory Rate 18 12/04/17 18:58 Blood Pressure 142/90 H 12/04/17 18:58 O2 Sat (%) 94 12/04/17 18:58 O2 Delivery Mode Room Air Allergies/Adverse Reactions: No Known Allergies Allergy (Verified 12/04/17 18:56) Home Medications: Medication Instructions Recorded Famotidine [Pepcid 20 MG (*)] 20 mg PO HS 12/04/17 Oxybutynin Chloride [Ditropan Xl] 10 mg PO DAILY 12/04/17 Potassium Chloride 40 meq PO BID 12/04/17 Medical Decision Making - Diagnostics Imaging Results: Imaging Impressions Abdomen CT 12/04/17 19:33 Impression: 1. Diffuse osteosclerotic metastasis. 2. Circumferential bladder wall thickening, asymmetrically more prominent the right suggesting cystitis, although neoplastic involvement cannot be excluded. 3. Ornelas catheter embedded in the right side of the bladder wall with asymmetric thickening of the bladder wall. Consider repositioning of Ornelas catheter. 4. Enlarged heterogeneous prostate consistent with prostate cancer history. 5. Pathologically enlarged metastatic pelvic and inguinal lymphadenopathy. 6. No definite hydronephrosis. Findings and recommendations discussed with emergency department physician, Lalo Díaz MD at 2040 hours on December 04, 2017. Final report concurs with initial preliminary interpretation. Imaging: Discussed imaging studies w/ fisher scallop Radiologist ED Course/Re-evaluation: The patient has purulent foul-smelling urine collecting in into bag. Also had CT scan his bladder is very inflamed and thickened and the Ornelas catheter seems to be the penetrating skilled nursing into the wall. It is not perforated. I will admit for catheter associated urinary tract infection. The patient is making only a small amount of urine since the 1st bag was removed. I did pull back on his catheter slightly and he is producing some urine into the bag. 9:15 p.m. I discussed the case with Dr. Clover Thacker who accepted to the [facility] inpatient Differential Diagnosis: Partial list of the Differential diagnosis considered include but were not limited to; chronic pain from metastasis, catheter associated urinary tract infection, perforation and although unlikely based on the history and physical exam, I also considered obstruction, perforation. Critical Care Time: Critical care time spent by me, Dr. Díaz exclusive with this patient was 35 minutes, exclusive of the PA time exclusive of procedures. The organ system that was at risk was the cardiovascular and I gave IV fluids, medications, consultation and admission to prevent worsening of the patient's condition - Data Points Laboratory Results: Laboratory Results 12/04/17 19:15 12/04/17 19:15 12/04/17 12/04/17 12/04/17 21:09 19:15 19:15 WBC 8.76 10^3/uL 10^3/uL (3.80-9.50) RBC 4.47 10^6/uL 10^6/uL (4.40-6.38) Hgb 12.9 g/dL L g/dL (13.7-17.5) Hct 39.7 % L % (40.0-51.0) MCV 88.8 fL fL (81.5-99.8) MCH 28.9 pg pg (27.9-34.1) MCHC 32.5 g/dL g/dL (32.4-36.7) RDW 14.7 % % (11.5-15.2) Plt Count 310 10^3/uL 10^3/uL (150-400) MPV 9.0 fL fL (8.7-11.7) Neut % (Auto) 54.6 % % (39.3-74.2) Lymph % (Auto) 33.0 % % (15.0-45.0) [place] % (Auto) 9.2 % % (4.5-13.0) Eos % (Auto) 1.7 % % (0.6-7.6) Baso % (Auto) 0.7 % % (0.3-1.7) Nucleat RBC Rel Count 0.0 % % (0.0-0.2) Absolute Neuts (auto) 4.78 10^3/uL 10^3/uL (1.70-6.50) Absolute Lymphs (auto) 2.89 10^3/uL 10^3/uL (1.00-3.00) Absolute Monos (auto) 0.81 10^3/uL H 10^3/uL (0.30-0.80) Absolute Eos (auto) 0.15 10^3/uL 10^3/uL (0.03-0.40) Absolute Basos (auto) 0.06 10^3/uL 10^3/uL (0.02-0.10) Absolute Nucleated RBC 0.00 10^3/uL 10^3/uL (0-0.01) Immature Gran % 0.8 % % (0.0-1.1) Immature Gran # 0.07 10^3/uL 10^3/uL (0.00-0.10) Sodium 136 mEq/L mEq/L (135-145) Potassium 4.2 mEq/L mEq/L (3.3-5.0) Chloride 104 mEq/L mEq/L (97-110) Carbon Dioxide 19 mEq/l L mEq/l (22-31) Anion Gap 13 mEq/L mEq/L (8-16) BUN 20 mg/dL mg/dL (7-23) Creatinine 0.7 mg/dL mg/dL (0.7-1.3) Estimated GFR > 60 Glucose 73 mg/dL mg/dL (70-100) Calcium 8.9 mg/dL mg/dL (8.5-10.4) Total Bilirubin 0.9 mg/dL mg/dL (0.1-1.4) Conjugated Bilirubin 0.3 mg/dL mg/dL (0.0-0.5) Unconjugated Bilirubin 0.6 mg/dL mg/dL (0.0-1.1) AST 35 IU/L IU/L (17-59) ALT 17 IU/L L IU/L (21-72) Alkaline Phosphatase 147 IU/L H IU/L (38-126) Total Protein 6.6 g/dL g/dL (6.3-8.2) Albumin 3.7 g/dL g/dL (3.5-5.0) Lipase 93 IU/L IU/L (23-300) Urine Color MIR Urine Appearance TURBID Urine pH 5.0 (5.0-7.5) Ur Specific [place] > 1.035 H (1.002-1.030) Urine Protein 2+ H (NEGATIVE) Urine Ketones 1+ H (NEGATIVE) Urine Blood 2+ H (NEGATIVE) Urine Nitrate NEGATIVE (NEGATIVE) Urine Bilirubin NEGATIVE (NEGATIVE) Urine Urobilinogen NEGATIVE EU EU (0.2-1.0) Ur Leukocyte Esterase 2+ H (NEGATIVE) Urine RBC 50-182 /hpf H /hpf (0-3) Urine WBC 50-182 /hpf H /hpf (0-3) Ur Epithelial Cells NONE SEEN /lpf /lpf (NONE-1+) Amorphous Sediment PRESENT /hpf /hpf (NONE-1+) Urine Bacteria 3+ /hpf H /hpf (NONE SEEN) Urine Mucus 4+ /lpf H /lpf (NONE-1+) Urine Glucose NEGATIVE (NEGATIVE) Medications Given: Vancomycin HCl (Vancomycin Pharmacy To Dose, 10-15 Mcg/Ml) 1 each MISC AD ENE PRN Reason: Protocol Stop: 06/02/18 21:14 Last Admin: 12/04/17 21:46 Dose: 1 each Discontinued Medications Sodium Chloride (Ns) 1,000 mls @ 0 mls/hr IV ONCE ONE; Wide Open PRN Reason: Protocol Stop: 12/04/17 19:23 Last Admin: 12/04/17 19:23 Dose: 1,000 mls Sodium Chloride (Ns) 1,000 mls @ 0 mls/hr IV ONCE ONE; Wide Open PRN Reason: Protocol Stop: 12/04/17 20:12 Last Admin: 12/04/17 20:24 Dose: 1,000 mls Ertapenem 1 gm/ Sodium (Chloride) 100 mls @ 200 mls/hr IV EDNOW ONE PRN Reason: Protocol Stop: 12/04/17 21:36 Last Admin: 12/04/17 21:20 Dose: 100 mls Departure - Departure Disposition: [facility] Inpatient Acute Clinical Impression: Catheter-associated urinary tract infection Qualifiers: Indwelling urinary catheter type: indwelling urethral catheter Encounter type: initial encounter Qualified Code(s): T83.511A - Infection and inflammatory reaction due to indwelling urethral catheter, initial encounter; N39.0 - Urinary tract infection, site not specified; N39.0 - Urinary tract infection, site not specified Condition: Fair
[2017-12-04 19:43] LABS: PLATELET COUNT 310 10^3/uL (150-400)
[2017-12-04] MEDS ORDERED: ERTAPENEM 1 GM in NS 100 ML IV ONE (21:07)
[2017-12-04] MEDS ORDERED: ONDANSETRON 4 MG/2 ML VIAL IVP PRN (21:30)
[2017-12-04] MEDS ORDERED: ONDANSETRON DISINTEGRATING 4 MG TAB PO PRN (21:30)
[2017-12-04] MEDS ORDERED: VANCOMYCIN 1 GM/NS 250 ML BAG IV ONE (21:42)
--- NOTE | 2017-12-04 22:06 | PDGENHP ---
History and Physical - History of Present Illness History Information - Allergies/Home Medication List Allergies/Adverse Reactions: No Known Allergies Allergy (Verified 12/04/17 18:56) Home Medications: Famotidine [Pepcid 20 MG (*)] 20 mg PO HS 12/04/17 [Last Taken 12/03/17] Oxybutynin Chloride [Ditropan Xl] 10 mg PO DAILY 12/04/17 [Last Taken 12/04/17] Potassium Chloride 40 meq PO BID 12/04/17 [Last Taken 12/03/17] I have personally reviewed and updated: family history, medical history, social history, surgical history - Past Medical History cancer (metastatic prostate cancer, diffuse osseous mets) Additional medical history: metastatic prostate cancer with recent bone scan showing bone and renal system mets, on lupron. anorexia. chronic indwelling ornelas, h/o cauti - Surgical History Reports: appendectomy - Family History Positive for: non-pertinent Additional family history: Denies family hx of cancer - Social History Smoking Status: Never smoked Alcohol Use: None Drug Use: None Additional social history: , lives at home Review of Systems Review of Systems: ROS: 10pt was reviewed & negative except for what was stated in HPI & below Physical Exam Physical Exam: Temp Pulse Resp BP Pulse Ox 36.4 C 110 H 16 122/84 H 94 12/04/17 21:12 12/04/17 21:12 12/04/17 21:12 12/04/17 21:12 12/04/17 21:12 Constitutional: no apparent distress, cachectic Eyes: PERRL Ears, Nose, Mouth, Throat: dry mucous membranes Cardiovascular: tachycardia Respiratory: no respiratory distress, clear to auscultation Gastrointestinal: other (soft, nd, +suprapubic TTP, no r/r/g, +BS) Skin: warm Musculoskeletal: full muscle strength Neurologic: AAOx3 Psychiatric: interacting appropriately Lab Data & Imaging Review 12/04/17 19:15 12/04/17 19:15 WBC 8.76 10^3/uL (3.80-9.50) 12/04/17 19:15 RBC 4.47 10^6/uL (4.40-6.38) 12/04/17 19:15 Hgb 12.9 g/dL (13.7-17.5) L 12/04/17 19:15 Hct 39.7 % (40.0-51.0) L 12/04/17 19:15 MCV 88.8 fL (81.5-99.8) 12/04/17 19:15 MCH 28.9 pg (27.9-34.1) 12/04/17 19:15 MCHC 32.5 g/dL (32.4-36.7) 12/04/17 19:15 RDW 14.7 % (11.5-15.2) 12/04/17 19:15 Plt Count 310 10^3/uL (150-400) 12/04/17 19:15 MPV 9.0 fL (8.7-11.7) 12/04/17 19:15 Neut % (Auto) 54.6 % (39.3-74.2) 12/04/17 19:15 Lymph % (Auto) 33.0 % (15.0-45.0) 12/04/17 19:15 [place] % (Auto) 9.2 % (4.5-13.0) 12/04/17 19:15 Eos % (Auto) 1.7 % (0.6-7.6) 12/04/17 19:15 Baso % (Auto) 0.7 % (0.3-1.7) 12/04/17 19:15 Nucleat RBC Rel Count 0.0 % (0.0-0.2) 12/04/17 19:15 Absolute Neuts (auto) 4.78 10^3/uL (1.70-6.50) 12/04/17 19:15 Absolute Lymphs (auto) 2.89 10^3/uL (1.00-3.00) 12/04/17 19:15 Absolute Monos (auto) 0.81 10^3/uL (0.30-0.80) H 12/04/17 19:15 Absolute Eos (auto) 0.15 10^3/uL (0.03-0.40) 12/04/17 19:15 Absolute Basos (auto) 0.06 10^3/uL (0.02-0.10) 12/04/17 19:15 Absolute Nucleated RBC 0.00 10^3/uL (0-0.01) 09/08/18 19:15 Immature Gran % 0.8 % (0.0-1.1) 12/04/17 19:15 Immature Gran # 0.07 10^3/uL (0.00-0.10) 12/04/17 19:15 Sodium 136 mEq/L (135-145) 12/04/17 19:15 Potassium 4.2 mEq/L (3.3-5.0) 12/04/17 19:15 Chloride 104 mEq/L (97-110) 12/04/17 19:15 Carbon Dioxide 19 mEq/l (22-31) L 12/04/17 19:15 Anion Gap 13 mEq/L (8-16) 12/04/17 19:15 BUN 20 mg/dL (7-23) 12/04/17 19:15 Creatinine 0.7 mg/dL (0.7-1.3) 12/04/17 19:15 Estimated GFR > 60 12/04/17 19:15 Glucose 73 mg/dL (70-100) 12/04/17 19:15 Calcium 8.9 mg/dL (8.5-10.4) 12/04/17 19:15 Total Bilirubin 0.9 mg/dL (0.1-1.4) 12/04/17 19:15 Conjugated Bilirubin 0.3 mg/dL (0.0-0.5) 12/04/17 19:15 Unconjugated Bilirubin 0.6 mg/dL (0.0-1.1) 12/04/17 19:15 AST 35 IU/L (17-59) 12/04/17 19:15 ALT 17 IU/L (21-72) L 12/04/17 19:15 Alkaline Phosphatase 147 IU/L (38-126) H 12/04/17 19:15 Total Protein 6.6 g/dL (6.3-8.2) 12/04/17 19:15 Albumin 3.7 g/dL (3.5-5.0) 12/04/17 19:15 Lipase 93 IU/L (23-300) 12/04/17 19:15 Urine Color MIR 12/04/17 21:09 Urine Appearance TURBID 12/04/17 21:09 Urine pH 5.0 (5.0-7.5) 12/04/17 21:09 Ur Specific [place] > 1.035 (1.002-1.030) H 12/04/17 21:09 Urine Protein 2+ (NEGATIVE) H 12/04/17 21:09 Urine Ketones 1+ (NEGATIVE) H 12/04/17 21:09 Urine Blood 2+ (NEGATIVE) H 12/04/17 21:09 Urine Nitrate NEGATIVE (NEGATIVE) 12/04/17 21:09 Urine Bilirubin NEGATIVE (NEGATIVE) 12/04/17 21:09 Urine Urobilinogen NEGATIVE EU (0.2-1.0) 12/04/17 21:09 Ur Leukocyte Esterase 2+ (NEGATIVE) H 12/04/17 21:09 Urine RBC 50-182 /hpf (0-3) H 12/04/17 21:09 Urine WBC 50-182 /hpf (0-3) H 12/04/17 21:09 Ur Epithelial Cells NONE SEEN /lpf (NONE-1+) 12/04/17 21:09 Amorphous Sediment PRESENT /hpf (NONE-1+) 12/04/17 21:09 Urine Bacteria 3+ /hpf (NONE SEEN) H 12/04/17 21:09 Urine Mucus 4+ /lpf (NONE-1+) H 12/04/17 21:09 Urine Glucose NEGATIVE (NEGATIVE) 12/04/17 21:09 Assessment & Plan Assessment: Catheter-associated urinary tract infection (Acute) - his urine is grossly purulent. Cont Ertapenem and Vanco given h/o enterococcus. UCx and BCx's pending. CT shows asymmetric bladder wall thickening with ornelas possibly embedded in the bladder wall. Discussed case with Dr. Joshi, urology, who does not believe that is the case and recommends RN change ornelas in am. Order is placed for this. Dr. Joshi recommends outpt f/u with his primary urologist. Metastatic prostate cancer - Diffuse skeletal mets, on Lupron. Was previously on Zytiga and Prednisone for 7 months, both of which were stopped due to progression. Followed by Dr. Joshi. Pt expresses interest in hospice. Palliative care consult requested. I have not discussed case with oncology, but would involve onc tomorrow. Possible adrenal insufficiency - pt recently tapered off Hydrocortisone. Would consider stress dose steroids if he becomes hypotensive or worsening symptoms. Anorexia - sounds like he has had better intake recently DNR DVT PPLX - Lovenox Dispo - inpt, anticipate >48 hrs hospitalization for ongoing management of CAUTI
[2017-12-05 05:22] LABS: PLATELET COUNT 232 10^3/uL (150-400)
--- NOTE | 2017-12-05 09:36 | PDMN ---
Medical Necessity Medical necessity: M300 UTI- A-2 days INPT: 87 yr old with hx of met. prostate Ca, presents with weakness, suprapubic pain, pt has chronic indwelling catheter, FTT, anorexia, poor appetite, urine is grossly purulent, IV abx needed, anticipate > 2 MN, palliative care consult requested.
[2017-12-05] MEDS: ENOXAPARIN 40 MG/0.4 ML SYR SC SCH (09:44)
[2017-12-05] MEDS: POTASSIUM CL 20 MEQ TAB PO SCH ×2 (09:45→21:33)
[2017-12-05] MEDS: ACETAMINOPHEN 325 MG TAB PO PRN ×2 (09:45→13:50)
[2017-12-05] MEDS: NS 1,000 ML IV SCH ×2 (09:46→21:39)
[2017-12-05] MEDS: OXYBUTYNIN 5 MG EXT REL TAB PO SCH (09:51)
--- NOTE | 2017-12-05 11:48 | HOSPPROG ---
Hospitalist Progress Note Assessment/Plan: Catheter-associated urinary tract infection (Acute) - his urine is grossly purulent. Cont Ertapenem and Vanco given h/o enterococcus. UCx and BCx's pending. CT shows asymmetric bladder wall thickening with ornelas possibly embedded in the bladder wall. Overnight MD discussed case with Dr. Joshi, urology , who does not believe that is the case and recommends RN change ornelas in am. Order is placed for this. Dr. Joshi recommends outpt f/u with his primary urologist. Metastatic prostate cancer - Diffuse skeletal mets, on Lupron. Was previously on Zytiga and Prednisone for 7 months, both of which were stopped due to progression. Followed by Dr. Jsohi. Pt expresses interest in hospice. Palliative care consult placed. Possible adrenal insufficiency - pt recently tapered off Hydrocortisone. Would consider stress dose steroids if he becomes hypotensive or worsening symptoms. Anorexia - sounds like he has had better intake recently DNR DVT PPLX - Lovenox Dispo - inpt, anticipate >48 hrs hospitalization for ongoing management of CAUTI Subjective: Patient reports feeling improved this AM Objective: Vital Signs Temp Pulse Resp BP Pulse Ox 36.6 C 67 16 115/68 99 12/05/17 09:22 12/05/17 09:22 12/05/17 09:22 12/05/17 09:22 12/05/17 09:22 Laboratory Results 12/05/17 04:19 12/05/17 04:19 12/04/17 12/05/17 12/06/17 05:59 05:59 05:59 Intake Total 2516 Output Total 1300 Balance 1216 - Physical Exam Constitutional: no apparent distress Eyes: PERRL Ears, Nose, Mouth, Throat: moist mucous membranes Cardiovascular: regular rate and rhythym Respiratory: no respiratory distress Gastrointestinal: normoactive bowel sounds, soft, non-tender abdomen Genitourinary: ornelas in urethra Skin: warm Musculoskeletal: no muscle tenderness Neurologic: No AAOx3 (AAOx2) Psychiatric: interacting appropriately ICD10 Worksheet Patient Problems: Problems Problem Status Onset Catheter-associated urinary tract infection Acute Dysphagia Acute Urinary tract infection Acute
--- NOTE | 2017-12-05 15:21 | ASMTCMCOM ---
CM Note CM Note Notes: Chart reviewed for discharge planning purposes. patient is a 87 year old male who was admitted via ED for feeling ill with vomiting. Know metastatic disease. Lives at home with and family support. PT and OT pending, palliative consult ordered for support. Last hospitalized in October where HHC was recommended and declines by patient and family. CM to follow for needs. Plan: TBD Date Signed: 12/05/2017 03:20 PM Electronically Signed By:Tati Ybarra RN
[2017-12-05] MEDS: FAMOTIDINE 20 MG TAB PO SCH (21:33)
[2017-12-05] MEDS: ERTAPENEM 1 GM in NS 100 ML IV SCH (21:33)
[2017-12-05] MEDS: VANCOMYCIN 1.25 GM in NS 250 ML IV SCH (21:33)
[2017-12-06] MEDS: NS 1,000 ML IV SCH ×2 (07:46→18:53)
[2017-12-06] MEDS: POTASSIUM CL 20 MEQ TAB PO SCH (10:10)
[2017-12-06] MEDS: ENOXAPARIN 40 MG/0.4 ML SYR SC SCH (10:11)
[2017-12-06] MEDS: OXYBUTYNIN 5 MG EXT REL TAB PO SCH (12:08)
--- NOTE | 2017-12-06 12:59 | HOSPPROG ---
Hospitalist Progress Note Assessment/Plan: Catheter-associated urinary tract infection (Acute) - - Urine was grossly purulent on admission - Cont Ertapenem and Vanco given h/o enterococcus, - UCx growing Enterococcus and Gram negative rods, non-lactose fermenting, BCx's - NGTd - Ornelas exchanged yesterday - Will plan to switch to PO abx pending urine cx sensitivities, w Bladder Spasms - Pt reports severe bladder spasms overnight - Will restart home Oxybutynin this morning Metastatic prostate cancer - Diffuse skeletal mets, on Lupron. - Was previously on Zytiga and Prednisone for 7 months, both of which were stopped due to progression. - Followed by Dr. Joshi. - Pt expresses interest in hospice. Palliative care consult placed. Possible adrenal insufficiency - Pt recently tapered off Hydrocortisone. - Would consider stress dose steroids if he becomes hypotensive or worsening symptoms. Anorexia - sounds like he has had better intake recently DNR DVT PPLX - Lovenox Dispo - Pending clinical course, may be able to transition to PO abx and d/c home tomorrow if urine cx sensitivities are back Subjective: Patient reports severe bladder spasms overnight Objective: Vital Signs Temp Pulse Resp BP Pulse Ox 36.4 C 71 16 140/86 H 93 12/06/17 12:50 12/06/17 12:50 12/06/17 12:50 12/06/17 12:50 12/06/17 12:50 Laboratory Results 12/06/17 03:20 12/06/17 03:20 12/05/17 12/06/17 12/07/17 05:59 05:59 05:59 Intake Total 2516 650 Output Total 1300 2200 650 Balance 1216 -1550 -650 - Physical Exam Constitutional: no apparent distress Eyes: PERRL Ears, Nose, Mouth, Throat: moist mucous membranes Cardiovascular: regular rate and rhythym Respiratory: no respiratory distress, clear to auscultation Gastrointestinal: normoactive bowel sounds, soft, non-tender abdomen Genitourinary: no bladder tenderness, ornelas in urethra Skin: warm Musculoskeletal: no muscle tenderness Neurologic: No AAOx3 Psychiatric: interacting appropriately ICD10 Worksheet Patient Problems: Problems Problem Status Onset Catheter-associated urinary tract infection Acute Dysphagia Acute Urinary tract infection Acute
--- NOTE | 2017-12-06 13:16 | ASMTCMCOM ---
CM Note CM Note Notes: Met with patient, William, his Xochitl, his son, Fer and Reza Roger to have informational meeting on the patient's care needs and goals moving forward. The family and the patient express interest in supportive care that may help prevent the readmission loop they have been currently experiencing. They are all in agreement with palliative care and per Xochitl they would like to engage [facility] as she has previous experience with. Referral made to HHC as well as patient has indwelling ornelas. Plan: Home with [facility] and HHC via [facility] or other provider if nursing care unavailable through [facility] Date Signed: 12/06/2017 01:16 PM Electronically Signed By:Tati Ybarra RN
[2017-12-06] MEDS: ACETAMINOPHEN 325 MG TAB PO PRN (18:55)
[2017-12-06] MEDS: ERTAPENEM 1 GM in NS 100 ML IV SCH (19:47)
[2017-12-06] MEDS: POTASSIUM CL 20 MEQ/15 ML UDCUP PO SCH (19:48)
[2017-12-06] MEDS: FAMOTIDINE 20 MG TAB PO SCH (19:48)
[2017-12-06] MEDS: VANCOMYCIN 1.25 GM in NS 250 ML IV SCH (21:43)
[2017-12-07] MEDS: NS 1,000 ML IV SCH ×2 (07:45→19:18)
[2017-12-07] MEDS: POTASSIUM CL 20 MEQ/15 ML UDCUP PO SCH (09:22)
[2017-12-07] MEDS: OXYBUTYNIN 5 MG EXT REL TAB PO SCH (09:22)
[2017-12-07] MEDS: ENOXAPARIN 40 MG/0.4 ML SYR SC SCH (09:23)
--- NOTE | 2017-12-07 12:23 | ASMTCMCOM ---
CM Note CM Note Notes: Met with hospitalist. Patient will likely discharge tomorrow, 12/08. I called and updated [facility] and [facility] (home RN), and both agencies will anticipate his d/c tomorrow. Case Management will follow. Date Signed: 12/07/2017 12:22 PM Electronically Signed By:Lolita Singh RN
--- NOTE | 2017-12-07 12:53 | HOSPPROG ---
Hospitalist Progress Note Assessment/Plan: Catheter-associated urinary tract infection (Acute) - - Urine was grossly purulent on admission - Cont Ertapenem and Vanco given h/o enterococcus, - UCx growing Enterococcus and Gram negative rods, non-lactose fermenting, BCx's - NGTd - Ornelas exchanged on 12/05 - Will plan to switch to PO abx pending urine cx sensitivities Bladder Spasms - Pt reports severe bladder spasms - Continue home Oxybutynin Metastatic prostate cancer - Diffuse skeletal mets, on Lupron. - Was previously on Zytiga and Prednisone for 7 months, both of which were stopped due to progression. - Followed by Dr. Joshi. - Pt expresses interest in hospice. Palliative care consult placed. Possible adrenal insufficiency - Pt recently tapered off Hydrocortisone. - Would consider stress dose steroids if he becomes hypotensive or worsening symptoms. Anorexia - sounds like he has had better intake recently DNR DVT PPLX - Lovenox Dispo - Pending clinical course, may be able to transition to PO abx and d/c home tomorrow if urine cx sensitivities are back Subjective: Patient reports no complaints this AM Objective: Vital Signs Temp Pulse Resp BP Pulse Ox 36.6 C 103 H 18 122/88 H 94 12/07/17 11:58 12/07/17 11:58 12/07/17 11:58 12/07/17 11:58 12/07/17 11:58 Laboratory Results 12/06/17 03:20 12/06/17 03:20 12/06/17 12/07/17 12/08/17 05:59 05:59 05:59 Intake Total 650 1950 400 Output Total 2200 1650 850 Balance -1550 300 -450 - Physical Exam Constitutional: no apparent distress, chronically ill appearing Eyes: PERRL Ears, Nose, Mouth, Throat: moist mucous membranes Cardiovascular: regular rate and rhythym Respiratory: no respiratory distress Gastrointestinal: soft, non-tender abdomen Genitourinary: no bladder fullness, ornelas in urethra Skin: warm Musculoskeletal: no muscle tenderness Neurologic: sensation intact bilaterally Psychiatric: interacting appropriately ICD10 Worksheet Patient Problems: Problems Problem Status Onset Catheter-associated urinary tract infection Acute Dysphagia Acute Urinary tract infection Acute
[2017-12-07] MEDS: FAMOTIDINE 20 MG TAB PO SCH (21:09)
[2017-12-07] MEDS: ERTAPENEM 1 GM in NS 100 ML IV SCH (21:09)
[2017-12-07] MEDS: ACETAMINOPHEN 325 MG TAB PO PRN (21:09)
[2017-12-07] MEDS: VANCOMYCIN 1.25 GM in NS 250 ML IV SCH (21:09)
[2017-12-07] MEDS: POTASSIUM CL 20 MEQ PKT PO SCH (22:11)
[2017-12-08 09:10] VITALS: BP 121/80
[2017-12-08] MEDS: OXYBUTYNIN 5 MG EXT REL TAB PO SCH (09:34)
[2017-12-08] MEDS: POTASSIUM CL 20 MEQ PKT PO SCH (09:37)
[2017-12-08] MEDS: ENOXAPARIN 40 MG/0.4 ML SYR SC SCH (09:41)
--- NOTE | 2017-12-08 10:33 | PDIAF ---
- Diagnosis Diagnosis: metastatic prostate cancer, CAUTI Code Status: Full Code - Medication Management Discharge Medications: Medications to Continue on Transfer Famotidine [Pepcid 20 MG (*)] 20 mg PO HS 12/04/17 [Last Taken 12/03/17] Oxybutynin Chloride [Ditropan Xl] 10 mg PO DAILY 12/04/17 [Last Taken 12/04/17] Potassium Chloride 40 meq PO BID 12/04/17 [Last Taken 12/03/17] Amoxicillin/Clavulanate Pot [Augmentin 875 MG TAB (*)] 875 mg PO BID #14 tab 03/15 [Last Taken Unknown] Discharge Medications: Refer to the Discharge Home Medication list for PRN reason. PICC Care - Routine: N/A - Orders Services needed: Home Care, Registered Nurse, Physical Therapy, Occupational Therapy Home Care Face to Face: I certify that this patient was under my care and that I had the required [id number] encounter meeting the encounter requirements on the discharge day. My findings support the fact that the patient is homebound as defined in Home Care Face to Face Continued: CMS Chapter 7 Medicare Benefits Manual 30.1.1 , The condition of the patient is such that there exists a normal inability to leave home and consequently, leaving home would require a considerable and taxing effort. Isolation Type: None Oxygen: 2 LPM Diet Recommendation: no restrictions on diet - Follow Up Care Current Providers and Referrals: DEENA ALLEN [Primary Care Provider] - As per Instructions Sal Joshi MD [Medical Doctor] - Aram Paul MD [Medical Doctor] -
--- NOTE | 2017-12-08 16:47 | GDS ---
DISCHARGE DIAGNOSES: 1. Catheter-associated urinary tract infection. 2. Metastatic prostate cancer. 3. 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 CONSULTANTS: None. IMAGING STUDIES: Abdomen and pelvis CT, December 04, 2017, showed diffuse osteosclerotic metastases, circumferential bladder wall thickening, which was asymmetric, suggesting cystitis versus a neoplast ic involvement. The Rivera catheter was thought possibly imbedded in the right side of the bladder wa ll. The prostate is enlarged and heterogeneous, consistent with his prostate cancer history. There is pathologically enlarged metastatic pelvic and inguinal lymphadenopathy. No evidence of hydronephr osis. HISTORY: For details, please see history and physical dated December 04, 2017. In brief, the patien t is an 87-year-old male with metastatic prostate cancer and recurrent hospitalizations related to an orexia and poor oral intake who returns to the emergency department with weakness and poor appetite. He was found to have a urinary tract infection in the setting of indwelling Rivera catheter and was a dmitted to the hospital for further management. HOSPITAL COURSE: Patient was admitted to the oncology unit. His urine was grossly purulent on admis selvin. He was started on ertapenem and vancomycin given his chronic indwelling Rivera. His Rivera cath eter was exchanged. Urology consult was requested, though they declined to see the patient in the [facility]. I discussed the case with Urology on admission, and they did not believe the Rivera was imbed ded into the bladder wall and suggested simply replacing the Rivera, which was done. His urine cultur e grew enterococcus greater than 100,000 and Acinetobacter 30,000 to 40,000. Sensitivities were revi ewed with Infectious Disease, and his antibiotics were transitioned to oral Augmentin given that his enterococcus is ampicillin sensitive. His blood cultures remained negative. He has been afebrile th roughout the hospitalization, with no leukocytosis or signs of sepsis. His appetite is actually sign ificantly improved. He has been taking food much better. DISPOSITION: Patient is discharged home in stable condition. FOLLOWUP: 1. Dr. Sal Joshi, Oncology. 2. Dr. Aram Paul, Urology. 3. Dr. Juan David Cunningham, primary care. DISCHARGE MEDICATIONS: Please see [facility] for completed outpatient medication list. New medication s on discharge include Augmentin 875 mg p.o. b.i.d., #14, no refills. He will continue all other out patient medications as previously prescribed. /[id number]/MODL
--- NOTE | 2017-12-08 17:42 | ASMTLACE ---
LACE Length of stay for Answers: 3 days current admission Comorbidities - select Answers: Any tumor (including all that apply lymphoma or leukemia) # of Emergency department Answers: 1-2 visits in the last 6 months Score: 6 Date Signed: 12/08/2017 11:02 AM Electronically Signed By:Tati Ybarra RN
--- NOTE | 2017-12-08 17:44 | ASMTCMCOM ---
CM Note CM Note Notes: Chart reviewed. Medically cleared for discharge to home with [facility] and [facility]. CM available should other needs arise. Plan: Disposition to home with a fore mentioned services. Date Signed: 12/08/2017 11:04 AM Electronically Signed By:Tati Ybarra RN
== END 2017-12-08 11:20 | disposition home health service (06) | DRG 699 ==
LOC: OBSVTOIN 21:15 → F1N 22:14
PROVIDERS: ADMIT Hospitalist; ATTEND Hospitalist
DX: T83.518A Infection and inflammatory reaction due to other urinary catheter, initial encounter (principal); C79.51 Secondary malignant neoplasm of bone; Z85.46 Personal history of malignant neoplasm of prostate; R63.0 Anorexia; E27.40 Unspecified adrenocortical insufficiency
CPT/HCPCS: 97161-GP; 97166-GO; 97530-GP; G8978-GP-CJ; G8979-GP-CI; G8987-GO-CJ; G8988-GO-CI; J1335; J1650; J2405; J3370

== ENCOUNTER → 2017-12-28 | Day surgery (SDC) | payer OTHER | END | disposition home or self-care (01) | LOC: FIMAGING 07:57 | PROVIDERS: ATTEND Internal Medicine Hematology & Oncology | PROC: 02H633Z Insertion of Infusion Device into Right Atrium, Percutaneous Approach (ICD-10-PCS; principal; 2017-12-28) | DX: Z45.2 Encounter for adjustment and management of vascular access device (principal); C61 Malignant neoplasm of prostate; C79.51 Secondary malignant neoplasm of bone; C79.52 Secondary malignant neoplasm of bone marrow | CPT/HCPCS: 36569; 77001; C1751 ==

== ENCOUNTER 2017-12-31 14:08 | Inpatient (IN) | payer OTHER ==
--- NOTE | 2017-12-31 14:50 | EDPHY ---
H & P Stated Complaint: Redness and swelling to posterior aspect of L hand x 2 days, denies trauma Time Seen by Provider: 12/31/17 14:50 HPI/ROS: HPI CHIEF COMPLAINT: Left wrist pain. HISTORY OF PRESENT ILLNESS: 87-year-old male, presents to the emergency room with left wrist pain, swelling, redness. Patient was referred to the emergency room by his oncologist for increasing pain, redness and swelling. Patient has a history of prostate cancer currently gets radiation. Has indwelling chronic Ornelas. Over last 2-3 days he has noticed left wrist swelling, pain and redness. No fever. Past Medical History: Prostate CA, chronic indwelling Ornelas. Metastatic prostate cancer. Catheter associated UTI, anorexia, thrush. Past Surgical History: No recent surgery Social History: Denies drugs alcohol tobacco. Family History: Noncontributory ROS REVIEW OF SYSTEMS: 10 Systems were reviewed and negative with the exception of the elements mentioned in the history of present illness. Exam Constitutional appears well nontoxic, triage nursing summary reviewed, vital signs reviewed, awake/alert. Eyes normal conjunctivae and sclera, EOMI, PERRLA. HENT normal inspection, atraumatic, moist mucus membranes, no epistaxis, neck supple/ no meningismus, no raccoon eyes. Respiratory clear to auscultation bilaterally, normal breath sounds, no respiratory distress, no wheezing. Cardiovascular rate normal, regular rhythm, no murmur, no edema, distal pulses normal. Gastrointestinal soft, non-tender, no rebound, no guarding, normal bowel sounds, no distension, no pulsatile mass. Genitourinary no CVA tenderness. Musculoskeletal left wrist: Swelling noted, redness. Good radial pulse. Good cap refill. Range of motion. However has some mild pain with range of motion. No crepitus on exam. The swelling or redness is over the dorsum of the left wrist. Mainly over the left radial region. no midline vertebral tenderness, full range of motion, no calf swelling, no tenderness of extremities, no meningismus, good pulses, neurovascularly intact. Skin pink, warm, & dry, no rash, skin atraumatic. Neurologic awake, alert and oriented x 3, AAOx3, moves all 4 extremities equally, motor intact, sensory intact, CN II-XII intact, normal cerebellar, normal vision, normal speech. Psychiatric normal mood/affect. Heme/Lymph/Immune no lymphadenopathy. Differential Diagnosis: Includes but is not limited to in a particular order acute arthritic process, septic joint, cellulitis, gout Medical Decision Making: Plan for this patient blood draw for CBC, chemistry, inflammatory markers. X-ray left wrist. Re-evaluate. Re-evaluation: I have consult Hand surgery Dr. Ha, to evaluate the patient. 1829: Doctor barahona with [facility] has seen and evaluated the patient. Aspirated the wrist joint. Fluid is been sent for analysis. The patient declined hospital admission. Had a long discussion with the patient and at bedside recommend hospital admission for observation overnight due to the redness swelling and pain to the left wrist. Until joint aspirate results. Cannot fully exclude overlying cellulitis or fully exclude septic joint. The recommendation was made to admit the patient overnight for observation. However the the patient have declined want to go home. The understands the risk of doing so. Ancef 2 g IV has been given prior to discharge. Additionally Dr. Ha, requests that the patient be given a prescription for Keflex. A prescription for Keflex will be provided. Additionally a Velcro wrist splint will be provided for immobilization and comfort. If the patient has worsening swelling, redness, pain, fever questions concerns he should return emergency room. Joint aspirate she be followed up. Again does recommend patient be admitted. Patient declined. Source: Patient - Personal History Current Tetanus/Diphtheria Vaccine: Unsure Current Tetanus Diphtheria and Acellular Pertussis (TDAP): Unsure Tetanus Vaccine Date: Unsure of date - Medical/Surgical History Hx Asthma: No Hx Chronic Respiratory Disease: No Hx Diabetes: No Hx Cardiac Disease: No Hx Renal Disease: Yes Hx Cirrhosis: No Hx Alcoholism: No Hx HIV/AIDS: No Hx Splenectomy or Spleen Trauma: No Other PMH: Prostate cancer with diffuse metastasis, ornelas cath, appy, anorexia, thrush, adrenal insufficiency, - Social History Smoking Status: Never smoked Constitutional: Initial Vital Signs Temperature (C) 36.3 C 12/31/17 14:08 Heart Rate 87 12/31/17 14:08 Respiratory Rate 16 12/31/17 14:08 Blood Pressure 144/82 H 12/31/17 14:08 O2 Sat (%) 94 12/31/17 14:08 O2 Delivery Mode Room Air Allergies/Adverse Reactions: No Known Allergies Allergy (Verified 12/04/17 18:56) Home Medications: Medication Instructions Recorded Cephalexin [Keflex] 500 mg PO Q6H #28 cap 12/31/17 Medical Decision Making - Diagnostics Imaging Results: Imaging Impressions Wrist X-Ray 12/31/17 14:55 Impression: 1. Age indeterminate distal radius fracture. 2. Tear versus laxity of the scapholunate ligament. 3. Query flare of pseudogout evidenced by soft tissue swelling and chondrocalcinosis. Findings discussed with Emergency Department physician, Sudhakar Castellanos MD, on 12/31/2017, 15:19. - Data Points Laboratory Results: Laboratory Results 12/31/17 15:25 12/31/17 15:25 12/31/17 12/31/17 15:25 15:25 WBC 6.79 10^3/uL 10^3/uL (3.80-9.50) RBC 3.70 10^6/uL L 10^6/uL (4.40-6.38) Hgb 10.7 g/dL L g/dL (13.7-17.5) Hct 32.4 % L % (40.0-51.0) MCV 87.6 fL fL (81.5-99.8) MCH 28.9 pg pg (27.9-34.1) MCHC 33.0 g/dL g/dL (32.4-36.7) RDW 14.7 % % (11.5-15.2) Plt Count 203 10^3/uL 10^3/uL (150-400) MPV 8.5 fL L fL (8.7-11.7) Neut % (Auto) 66.5 % % (39.3-74.2) Lymph % (Auto) 16.2 % % (15.0-45.0) Hale % (Auto) 14.6 % H % (4.5-13.0) Eos % (Auto) 1.3 % % (0.6-7.6) Baso % (Auto) 0.7 % % (0.3-1.7) Nucleat RBC Rel Count 0.0 % % (0.0-0.2) Absolute Neuts (auto) 4.51 10^3/uL 10^3/uL (1.70-6.50) Absolute Lymphs (auto) 1.10 10^3/uL 10^3/uL (1.00-3.00) Absolute Monos (auto) 0.99 10^3/uL H 10^3/uL (0.30-0.80) Absolute Eos (auto) 0.09 10^3/uL 10^3/uL (0.03-0.40) Absolute Basos (auto) 0.05 10^3/uL 10^3/uL (0.02-0.10) Absolute Nucleated RBC 0.00 10^3/uL 10^3/uL (0-0.01) Immature Gran % 0.7 % % (0.0-1.1) Immature Gran # 0.05 10^3/uL 10^3/uL (0.00-0.10) ESR 16 MM/HR MM/HR (0-20) Sodium 136 mEq/L mEq/L (135-145) Potassium 3.1 mEq/L L mEq/L (3.3-5.0) Chloride 103 mEq/L mEq/L (97-110) Carbon Dioxide 28 mEq/l mEq/l (22-31) Anion Gap 5 mEq/L L mEq/L (8-16) BUN 16 mg/dL mg/dL (7-23) Creatinine 0.4 mg/dL L mg/dL (0.7-1.3) Estimated GFR > 60 Glucose 96 mg/dL mg/dL (70-100) Calcium 8.0 mg/dL L mg/dL (8.5-10.4) C-Reactive Protein 55.8 mg/L H mg/L (<10.0) Medications Given: Discontinued Medications Potassium Chloride (Klor Packets) 40 meq PO EDNOW ONE Stop: 12/31/17 15:47 Last Admin: 12/31/17 15:59 Dose: 40 meq Departure - Departure Disposition: Home, Routine, Self-Care Clinical Impression: Wrist pain Qualifiers: Laterality: left Qualified Code(s): M25.532 - Pain in left wrist Condition: Good Instructions: Wrist Injury (ED), Arthralgia (ED), Swollen Joint (ED) Additional Instructions: 1. Recommend rest. 2. Velcro wrist splint for comfort 3. Ice. 4. Anti-inflammatory pain medicine like Tylenol or Motrin 5. Antibiotics as prescribed 6. Follow up with Dr. Ha. 7. You should receive a phone call about you're joint aspirate results. Referrals: DEENA ALLEN [Primary Care Provider] - As per Instructions Jose Alfredo Ha MD [Medical Doctor] - As per Instructions Prescriptions: Cephalexin [Keflex] 500 mg PO Q6H #28 cap
[2017-12-31 15:33] LABS: PLATELET COUNT 203 10^3/uL (150-400)
[2017-12-31] MEDS ORDERED: POTASSIUM CL 20 MEQ PKT PO ONE (15:46)
[2017-12-31] MEDS ORDERED: ceFAZolin 2 GM/DEXTROSE 100 ML IV ONE (18:29)
[2017-12-31] MEDS ORDERED: NS 1,000 ML IV ONE (18:42)
[2017-12-31] MEDS ORDERED: POTASSIUM CL 20 MEQ TAB PO PRN (21:46)
[2017-12-31] MEDS: COLCHICINE 0.6 MG CAP/TAB PO SCH (22:06)
[2017-12-31] MEDS ORDERED: POTASSIUM CL 20 MEQ/15 ML UDCUP PO ONE (22:06)
--- NOTE | 2017-12-31 22:06 | PDGENHP ---
History and Physical History and Physical: CC: Left wrist pain and swelling HISTORY: This patient comes into the ER today complaining of left wrist pain and swelling for 2-3 days, with some redness, without any known injury. He reports no previous history of injury or pain in his left wrist. There has been no fever. He has no history of gout and no history of significant infections or joint infections. None of his other joints are giving him any acute problems at this time. He has add aspiration of joint effusion fluid in the ER today and says his wrist is less painful after that ROS: A comprehensive 10 system review revealed no other significant findings PAST MEDICAL HISTORY: Prostate cancer with bone metastases, on Lupron chronic indwelling Rivera catheter for outlet obstruction UTI Anorexia Thrush FAMILY MEDICAL HISTORY: No pertinent findings SOCIAL HISTORY: lives with his at home No smoking or tobacco MEDICATIONS: The patients list has been reconciled by our clinical pharmacist in the EMR. I have reviewed the list and ordered appropriate medicines. PHYSICAL EXAMINATION: Vital Signs: Mild hypertension otherwise normal without fever Examination: General: alert, oriented, good mentation, relaxed Skin: warm, dry, good color, no rash HEENT: normal Neck: no mass or jvd Resps: relaxed Lungs: clear breath sounds Heart: regular, no murmur Abdomen: soft, nondistended, nontender, +BS, no mass Upper Extremities: His left wrist is in a splint. As I removed the splint there is still some mild effusion in still some mild edema over the dorsum of the hand, with decreased range of motion but only mild tenderness, not very warm. 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 There is a fracture of the distal radius that crosses the chondral surface with some displacement and a step-off at the chondral surface. There is no specific sclerosis ASSESSMENT: * acute pain swelling and effusion at the left wrist with high white blood cell count in joint fluid * fracture across the distal chondral surface of the left radius uncertain age * This was assessed by Dr. Ha of Orthopedics who felt it was probably chronic, no recent injury * hypokalemia * asymptomatic pyuria in a patient with chronic Rivera catheter is not likely infectious PLANS: * Await crystal analysis and cultures of his joint fluid * Patient has been started on empiric antibiotics and colchicine * Splint to the wrist * As the fractures felt to likely be chronic no specific measures taken for that at this moment but will need follow-up * Potassium replacement I have reviewed the patient's case in detail with Dr. Sudhakar Castellanos I have reviewed the patient's past medical records as part of this assessment, including outpatient clinic records
[2018-01-01] MEDS: ceFAZolin 2 GM/DEXTROSE 100 ML IV SCH ×3 (03:50→18:56)
--- NOTE | 2018-01-01 05:53 | GCON ---
CONSULTATION CHIEF COMPLAINT: Left wrist swelling and pain. HISTORY OF PRESENT ILLNESS: The patient is an 87-year-old male who presents to the ER with increasing left wrist redness, pain, and swelling. He was referred here by his oncologist. He noticed this several days ago. He denies any history of trauma. He has a history of prostate cancer and currently gets radiation. This has occurred over the last 2-3 days. He does not have a fever. PAST MEDICAL HISTORY: Significant for prostate cancer and chronic indwelling Rivera. The prostate cancer is metastatic. PAST SURGICAL HISTORY: None recently. SOCIAL HISTORY: Denies drugs or tobacco. FAMILY HISTORY: Noncontributory. REVIEW OF SYSTEMS: 10-point review of systems is negative, except for as noted above. OBJECTIVE: GENERAL: He is alert and oriented. Lying in bed, in no apparent distress. MUSCULOSKELETAL: On exam of left wrist there is diffuse erythema over the wrist. He is tender to palpation over the SL interval over the wrist joint. Minimally tender over the TFCC. Apart from the wrist joint, he has mild tenderness over the erythematous area. He has only mild pain in the wrist with passive range of motion of the wrist and minimal pain in the mid arc of motion. He is not tender to palpation of the radial styloid. X-RAY: X-ray of the left wrist is significant for a scapholunate disassociation , a subacute-appearing radial styloid fracture, and then evidence of chondrocalcinosis. LABS: His white count is normal at 6.79. He is slightly anemic. His ESR is 16. His CRP is slightly elevated at 55.8. ASSESSMENT AND PLAN: Left wrist pain and swelling over the last 2-3 days in this elderly male with pre-existing prostate cancer, gout, or pseudogout are a very distinct possibility. The x-ray features of chondrocalcinosis strongly support the diagnosis of pseudogout. The joint fluid aspirate also has the appearance of possible pseudogout with small calcified bodies in the joint fluid. The joint fluid did not appear septic. The exam is also concerning for possible overlying cellulitis. A septic joint is also a possibility in this setting. However, several signs point away from this diagnosis including the lack of pain in the mid arc of motion and mildly painful passive range of motion of the wrist. At this point. PLAN: In the setting of possible cellulitis and septic wrist, I would recommend inpatient admission to the hospitalist service while we wait for the aspirate results to return. As the cellulitis and septic arthritis are a possibility, I would recommend coverage with IV antibiotics for the time being. I will review the results of the aspirate myself. I will follow the patient while he is in the hospital. PROCEDURE NOTE: Left wrist aspiration. Verbal consent was obtained. Using sterile technique, a 22-gauge needle was used to aspirate the wrist at the 3-4 portal. About a cubic centimeter and a half of a slightly opaque viscous joint fluid was aspirated. There were small calcified bodies within this fluid. /[id number]/MODL and [id number]/MODL [facility]
[2018-01-01] MEDS: ONDANSETRON DISINTEGRATING 4 MG TAB PO PRN ×2 (09:37→18:56)
--- NOTE | 2018-01-01 10:32 | SOAPPROG ---
SOAP Progress Note Assessment/Plan: Assessment: L wrist pain and swelling -cell count 55k, c/w either crystal arthropathy vs septic wrist. I spoke to the lab this am. Per report he has many calcium pyrophosphate crystals. The clinical presentation, cell count, and crystal examination is very suggestive of CPPD flare. Plan: -he appears to have improved markedly on empiric abx and colchicine. Clinical picture c/w CPPD flare. With small possibility of overlying cellulitis it may be helpful to cover the patient with PO abx. He should f/u with PCP or his oncologist for treatment of CPPD. 01/01/18 10:38 Subjective: Mr. Varela's wrist feels much better this morning. His thinks "it looks more like a normal wrist." Objective: Vital Signs Temp Pulse Resp BP Pulse Ox 36.3 C 69 16 124/73 H 96 01/01/18 09:18 01/01/18 09:18 01/01/18 09:18 01/01/18 09:18 01/01/18 09:18 Laboratory Results 01/01/18 06:05 12/31/17 01/01/18 01/02/18 05:59 05:59 05:59 Intake Total 1350 Output Total 1150 Balance 200 L wrist -swelling markedly reduced -erythema nearly resolved -no pain with wrist PROM -nttp over radial styloid ICD10 Worksheet Patient Problems: Problems Problem Status Onset Wrist pain Acute Catheter-associated urinary tract infection Acute Dysphagia Acute Urinary tract infection Acute
--- NOTE | 2018-01-01 10:50 | HOSPPROG ---
Hospitalist Progress Note Assessment/Plan: 87 yo M w metastatic prostate CA, indwelling ornelas here w L wrist effusion, likely pseudogout pseudogout: per lab prelim, cppd crystals seen continue colchicine d/w dr narvaez OT to see ?joint infection: synovial white count noted, not specific for infection continue abx add'l day urinary obstruction: con tinue ornelas hypokalemia: replet dispo: change to inpatient Subjective: case d/w dr narvaez. per family, wrist improved Objective: Vital Signs Temp Pulse Resp BP Pulse Ox 36.3 C 69 16 124/73 H 96 01/01/18 09:18 01/01/18 09:18 01/01/18 09:18 01/01/18 09:18 01/01/18 09:18 Laboratory Results 01/01/18 06:05 12/31/17 01/01/18 01/02/18 05:59 05:59 05:59 Intake Total 1350 Output Total 1150 Balance 200 - Physical Exam Constitutional: no apparent distress, appears nourished Eyes: PERRL, anicteric sclera Ears, Nose, Mouth, Throat: moist mucous membranes, hearing normal Cardiovascular: regular rate and rhythym, no murmur, rub, or gallop Respiratory: no respiratory distress Gastrointestinal: normoactive bowel sounds, soft, non-tender abdomen Genitourinary: no bladder fullness, ornelas in urethra Skin: warm, normal color Musculoskeletal: other (L wrist w erythema, warmth, minimal to no efusion. able to flex/extend w no severe pain) Neurologic: AAOx3, sensation intact bilaterally Psychiatric: interacting appropriately ICD10 Worksheet Patient Problems: Problems Problem Status Onset Wrist pain Acute Catheter-associated urinary tract infection Acute Dysphagia Acute Urinary tract infection Acute
[2018-01-01] MEDS: POTASSIUM CL 20 MEQ PKT PO SCH (11:00)
[2018-01-01] MEDS: COLCHICINE 0.6 MG CAP/TAB PO SCH (11:00)
[2018-01-01] MEDS: ENOXAPARIN 40 MG/0.4 ML SYR SC SCH (11:01)
[2018-01-01] MEDS: POTASSIUM Cl (KCl) 40 MEQ in D5W 1/2 NS 1,000 ML IV SCH (11:34)
--- NOTE | 2018-01-01 11:38 | PDMN ---
Medical Necessity Medical necessity: MCG: Musculoskeletal disease psuedogout, L wrist effusion cppd crystals seen, aspiration of joint in ED, ? joint infection, crystal arthroplasthy vs. septic wrist, in pt with PMH of prostate Ca.,with bone mets. on Lupron, chronic indwelling catheter, anticipate > 2 [place] onging med nec care IV abx, IVF
[2018-01-01] MEDS: OXYBUTYNIN 5 MG EXT REL TAB PO SCH (12:28)
--- NOTE | 2018-01-01 13:54 | ASMTCMCOM ---
CM Note CM Note Notes: Pt came to the ER for a painful wrist. He has a hx of metastatic prostate cancer w/bone mets. He lives at home with his . Dc needs unclear, no therapies ordered, CM w/f. DC Plan: TBD Date Signed: 01/01/2018 01:54 PM Electronically Signed By:Ana Sarabia RN
[2018-01-01] MEDS ORDERED: FAMOTIDINE 20 MG TAB PO SCH (21:00)
[2018-01-02] MEDS: ceFAZolin 2 GM/DEXTROSE 100 ML IV SCH (03:36)
[2018-01-02 04:15] VITALS: BP 130/89
[2018-01-02] MEDS: POTASSIUM Cl (KCl) 40 MEQ in D5W 1/2 NS 1,000 ML IV SCH (05:21)
[2018-01-02] MEDS: POTASSIUM CL 20 MEQ PKT PO SCH (08:53)
[2018-01-02] MEDS: COLCHICINE 0.6 MG CAP/TAB PO SCH (08:53)
[2018-01-02] MEDS: OXYBUTYNIN 5 MG EXT REL TAB PO SCH (08:53)
[2018-01-02] MEDS: ENOXAPARIN 40 MG/0.4 ML SYR SC SCH (08:54)
--- NOTE | 2018-01-02 10:03 | HOSPPROG ---
Hospitalist Progress Note Assessment/Plan: 87 yo M w metastatic prostate CA, indwelling ornelas here w L wrist effusion, likely pseudogout pseudogout: per lab prelim, cppd crystals seen continue colchicine d/w dr narvaez OT to see ?joint infection: synovial white count noted, not specific for infection continue abx add'l day will not continue abx on dc i believe this is more likely just pseudogout we did discuss the signs/sx of infection and reasons to return for care urinary obstruction: continue ornelas hypokalemia: replet dispo: home today > 30 minutes Subjective: wrist improved. afebrile. culture data neg Objective: Vital Signs Temp Pulse Resp BP Pulse Ox 36.4 C 60 16 130/89 H 98 01/02/18 04:10 01/02/18 04:10 01/02/18 04:10 01/02/18 04:10 01/02/18 04:10 Laboratory Results 01/02/18 05:15 01/01/18 01/02/18 01/03/18 05:59 05:59 05:59 Intake Total 1350 939 Output Total 1150 900 Balance 200 39 - Physical Exam Constitutional: no apparent distress, appears nourished Eyes: PERRL, anicteric sclera Ears, Nose, Mouth, Throat: moist mucous membranes, hearing normal Cardiovascular: regular rate and rhythym, no murmur, rub, or gallop Respiratory: no respiratory distress, no rales or rhonchi Gastrointestinal: normoactive bowel sounds, soft, non-tender abdomen Genitourinary: no bladder fullness, No ornelas in urethra Skin: warm, normal color Musculoskeletal: other (wrist w normal ROM w no pain. no effusion or erythema) Neurologic: AAOx3 Psychiatric: interacting appropriately ICD10 Worksheet Patient Problems: Problems Problem Status Onset Wrist pain Acute Catheter-associated urinary tract infection Acute Dysphagia Acute Urinary tract infection Acute
--- NOTE | 2018-01-02 10:21 | ASMTLACE ---
LACE Length of stay for Answers: 1 day current admission Acuity / Level of Answers: Yes Care: Did the patient have an inpatient admission? Comorbidities - select Answers: Other Notes: Prostate Ca all that apply # of Emergency department Answers: 5-8 visits in the last 6 months Score: 9 Date Signed: 01/02/2018 10:20 AM Electronically Signed By:Tati Ybarra RN
--- NOTE | 2018-01-02 10:23 | ASMTCMCOM ---
CM Note CM Note Notes: Patient medically cleared for dc to home. No needs identified. CM available should needs arise. Offered Meals on Wheels. Plan: Home independently with family support. Date Signed: 01/02/2018 10:23 AM Electronically Signed By:Tati Ybarra RN
--- NOTE | 2018-01-02 11:06 | PDIAF ---
- Diagnosis Diagnosis: pseudogout; prostate cancer Code Status: Full Code - Medication Management Discharge Medications: Medications to Continue on Transfer Famotidine [Pepcid 20 MG (*)] 20 mg PO HS 12/31/17 [Last Taken 12/30/17] Ondansetron HCl [Zofran] 8 mg PO Q8H PRN 12/31/17 [Last Taken 3 Days Ago ~] Oxybutynin Chloride [OXYBUTYNIN CHLORIDE ER] 30 mg PO DAILY 12/31/17 [Last Taken 12/30/17] Potassium Cl [Klor-Con 20 meq (*)] 20 meq PO DAILY PRN 12/31/17 [Last Taken 08/13] Colchicine [Colchicine (*)] 0.6 mg PO DAILY #7 ea 01/02/18 [Last Taken Unknown] Discharge Medications: Refer to the Discharge Home Medication list for PRN reason. - Orders Services needed: Home Care, Registered Nurse Home Care Face to Face: I certify that this patient was under my care and that I had the required [id number] encounter meeting the encounter requirements on the discharge day. My findings support the fact that the patient is homebound as defined in Home Care Face to Face Continued: CMS Chapter 7 Medicare Benefits Manual 30.1.1 , The condition of the patient is such that there exists a normal inability to leave home and consequently, leaving home would require a considerable and taxing effort. Isolation Type: None Additional Instructions: 1. Recommend rest. 2. Velcro wrist splint for comfort 3. Ice. 4. Anti-inflammatory pain medicine like Tylenol or Motrin 5. Antibiotics as prescribed 6. Follow up with Dr. Ha. 7. You should receive a phone call about you're joint aspirate results. - Follow Up Care Current Providers and Referrals: DEENA ALLEN [Primary Care Provider] - As per Instructions Jose Alfredo Ha MD [Medical Doctor] - As per Instructions
--- NOTE | 2018-01-02 11:08 | GDS ---
DISCHARGE DIAGNOSES: 1. Pseudogout of the left wrist, pain. 2. History of prostate cancer with bone metastases, on Lupron. 3. Chronic indwelling Rivera. 4. Hypokalemia. CONSULTATIONS: Hand surgery. PROCEDURE: Aspiration of synovial fluid. HOSPITAL COURSE: Patient presented with left wrist swelling. He did not have fevers. He did not have a leukocytosis. He underwent aspiration of his joint, which showed 55,000 white cells, 17,000 red cells. It had many calcium pyrophosphate crystals. The hand surgeon who aspirated it thought it was more consistent with pseudogout. The markedly elevated white count is not specific for infection and micro is negative. He received cefazolin while here, but ultimately I believe this is pseudogout alone and not a coinfection. He is discharged home with a week of colchicine and not antibiotics. Discharge status to home. Regarding his hypokalemia, the patient had hypokalemia. He was given IV fluids containing potassium with improvement. He does take potassium on a regular basis. The patient is given signs and symptoms return to the hospital that would be marketing development representative for infection. /[id number]/MODL MTDD
--- NOTE | 2018-01-02 12:08 | ASMTCMCOM ---
CM Note CM Note Notes: Per RN patient currently has PICC line for chemotherapy. Recent with [facility]. Call to Luana charge weigher and [facility] [place]. Interagency form completed. Plan: Home with [facility]. Date Signed: 01/02/2018 12:07 PM Electronically Signed By:Tati Ybarra RN
== END 2018-01-02 12:48 | disposition home health service (06) | DRG 554 ==
LOC: OBSVTOIN 18:44 → F1N 21:00
PROVIDERS: ADMIT Internal Medicine; ATTEND Internal Medicine
PROC: 0R9P3ZX Drainage of Left Wrist Joint, Percutaneous Approach, Diagnostic (ICD-10-PCS; principal; 2017-12-31)
DX: M11.832 Other specified crystal arthropathies, left wrist (principal); C79.51 Secondary malignant neoplasm of bone; E87.6 Hypokalemia; Z85.46 Personal history of malignant neoplasm of prostate
CPT/HCPCS: 96365; J0690; J1650; J3480; L3807